=== PATIENT | male | born 1925 | race Caucasian/White ===

== ENCOUNTER 2016-04-29 08:07 | Inpatient (IN) | payer MEDICARE, OTHER ==
--- NOTE | ~2016-04-29 | DS ---
Discharge Summary [facility] [address] [place]. [address] NAME: GRICELDA GIPSON : [birth year] STATUS : DIS IN PAT#: [id number] AGE: 89 ADM/REG DATE : 04/29/16 MR#: [id number] REPORT SERV DATE: 05/08/16 DICTATED BY: ZULMA BARKER III DATE: 05/07/16 REPORT STATUS : Draft TRANSCRIBED BY: CAIO DATE: 05/07/16 Data Collection from hospitalization DISCHARGE DIAGNOSES: 1. 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 2. Malnutrition. 3. Functional paraplegia. 4. Hypertension. 5. Gastroesophageal reflux disease. 6. History of frequent urinary tract infections. 7. Chronic kidney disease stage 3. 8. History of prostate cancer. 9. Diabetes mellitus, dietary controlled. 10.History of depression. CONSULTATIONS: None. PROCEDURES PERFORMED: Wide reexcision of the left-sided chronic fistula tract with coccygectomy and complex closure with flap development and muscle transposition, C and S were also performed from the tract and from the coccyx for better culture analysis, 04/29/2016. PATHOLOGY: Skin, subcutis, and bone; sacrococcygeal area chronic ulcer; and sinus tract extending into underlying bone. MEDICATIONS: Norvasc 5 mg daily, Ecotrin 325 mg daily, Bentyl 10 mg every evening, ferrous sulfate 325 mg daily, Proscar 5 mg every evening, Lasix 40 mg at bedtime, NovoLog insulin level 1 sliding scale before meals and at bedtime, Lopressor 25 mg every evening, Protonix 40 mg at bedtime, Pravachol 20 mg every evening, Requip 0.5 mg every evening, Hytrin 5 mg every evening, Aleve 200 mg twice daily as needed, Benadryl 25 mg every 6 hours as needed, Flonase one spray each nostril twice daily as needed, [place] 5/325 one or two every four hours as needed, MiraLAX powder one packet as needed, PreserVision one twice daily, doxycycline 100 mg twice daily x7 days, [place] 5/325 one or two every six hours as needed. CONDITION AT DISCHARGE: Upon discharge, he did appear to be doing well and had no complaints. DISPOSITION: He was discharged with transfer to [facility] to continue an 1800- calorie ADA diet with activity as discussed. He was to continue with both physical therapy and occupational therapy. He was to [facility] up with [facility] in three weeks. HOSPITAL COURSE: This 89-year-old male was admitted with a long history of chronic wound in his left buttock that began after an excision of a cystic benign mass by his primary care doctor, Dr. Valdo Hunter over a year ago. He had a wide excision of this area that failed to respond to conservative treatment initially, and after the wide excision, the patient continued to fail to heal with cavitary affect and failed to respond to wound VAC therapy as well as numerous other therapeutic modalities to try and close the chronic ulcer with a fistula tract. Workup eventually showed a likely osteomyelitis in the area of the coccyx Discharge [address] [address] NAME: GRICELDA GIPSON : [birth year] STATUS : DIS IN PAT#: [id number] AGE: 89 ADM/REG DATE : 04/29/16 MR#: [id number] REPORT SERV DATE: 05/08/16 DICTATED BY: ZULMA BARKER III DATE: 05/07/16 REPORT STATUS : Draft TRANSCRIBED BY: CAIO DATE: 05/07/16 with a tract that extended to this level and wide excision was recommended to him several weeks prior to this admission; however, he had been unable to have this done due to extreme illness of his , who only a few days prior to this admission. He had an area in the left buttock that had been draining and treated with numerous modalities including antibiotics, wound VAC therapy, and [facility]bridement in [facility]. He was now admitted for surgery and further treatment. Upon admission to the hospital, he had been taken to the operating room where he did undergo the above procedure. He tolerated this well and was transferred to the recovery room. On postop day 1, he did have complaints of leg muscle cramps and was also noted to be thirsty. He was afebrile and his vital signs were stable. He was continued on supportive care. He had been continued on empiric antibiotics with vancomycin pending final culture results. On 05/01/2016, his blood pressure was noted to be up a little. He did state that he had felt better following transfusion. His hemoglobin prior to the transfusion was at 7.9, hematocrit 24.3. Post transfusion, his hemoglobin was up to 10.5, hematocrit 32.7. He had little oral intake recorded and was encouraged to increase his oral intake. His potassium was at 4.2, BUN 37, creatinine 1.38. He had been evaluated by both Physical Therapy and Occupational Therapy and discharge planning was begun. He did continue to do well and was then discharged on 05/02/2016, with the above instructions. Information collected by: Donna Carrillo. I submit the above information as my discharge summary. MARY/CAIO Zulma Barker III, M.D. / [id number] CC: Jazmin Oreilly III, M.D. [facility]
--- NOTE | ~2016-04-29 | OP ---
Record Of Operation [facility] [address] [place]. [address] NAME: GRICELDA GIPSON : [birth year] STATUS : REG [facility] [place] PAT#: [id number] AGE: 89 ADM/REG DATE : 04/29/16 MR#: [id number] REPORT SERV DATE: 04/29/16 DICTATED BY: ZULMA BARKER III DATE: 04/29/16 REPORT STATUS : Draft TRANSCRIBED BY: MODL DATE: 04/29/16 DATE OF PROCEDURE: 04/29/2016 PREOPERATIVE DIAGNOSIS: Chronic ulceration of the left buttock area with extensive track not responding to conservative treatment and MRI evidence of osteomyelitis of the coccyx in a patient with a paraplegia, protein malnutrition, and diabetes historically. POSTOPERATIVE DIAGNOSIS: Chronic ulceration of the left buttock area with extensive track not responding to conservative treatment and MRI evidence of osteomyelitis of the coccyx in a patient with a paraplegia, protein malnutrition, and diabetes historically. Extensive track from the opening left buttocks all the way to the coccyx, which was intimately involved at the base of the track and obviously involved in infectious/inflammatory process. The coccyx was excised and submitted for culture in its entirety and the remnants from rongeured areas along the sacrum were also submitted for the C and S. The soft tissue from the base of the ulcer track were also submitted separately for culture and sensitivity. ANESTHESIA: General with the patient in the prone tita-knife position. The anesthesia was performed with endotracheal tube using a glide scope. DESCRIPTION OF PROCEDURE: The patient was brought to the operating room and positioned and prior to draping and prepping the patient, time-out was held with agreement of allergies, antibiotic plans after cultures were obtained, and surgical plans. After this had been completed with full agreement from the entire staff, the procedure was continued in an ellipsing incision made over the entire length of the track, which was probed with a probing device from the opening all the way to the coccyx, which was approximately 15 cm ellipsing incision. Bovie cautery was used in cutting and coag forms for dissection and hemostasis and wide excision carried out removing all of the fistula tract all the way to the level of the coccyx. The soft tissues were curetted and rongeured, and the coccyx removed and submitted for culture and sensitivity as well as soft tissue from the base of the inflammatory tract. The area was then inspected and incision included all the way down to the rectal muscularis, which was seen, but no incursion developed. The tissues were irrigated with pulse lavage and a large opening prepared for closure. The gluteus muscles were mobilized for transposition, and using an 0 Vicryl sutures, the muscles were pulled down over the defect to help fill the space from the excision. The area of the coccyx excision was similarly covered with fascia from the sacral fascia and approximation performed with interrupted 0 Vicryl sutures [id number] technique. After these had all been placed, they were tied down with good approximation and coverage of the deep tissues. Surgicel was placed in the base prior to complete closure, and tying down of all sutures. Hemostasis was achieved with the cautery and stick ties of Vicryl. The deep tissues were then closed in layers closing the muscle and sacral fascias with interrupted [id number] 0 Vicryl. The subcutaneous tissue was also mobilized for closure creating flaps to get a nice relatively smooth approximation and 0 Vicryl sutures used to approximate subcu tissue. 2-0 Prolene sutures using vertical mattress technique were then used in simple sutures to close the skin. Acticoat postop was applied and no drains were needed. The patient Record Of [address] [place]. [address] NAME: GRICELDA GIPSON : [birth year] STATUS : REG [facility] [place] PAT#: [id number] AGE: 89 ADM/REG DATE : 04/29/16 MR#: [id number] REPORT SERV DATE: 04/29/16 DICTATED BY: ZULMA BARKER III DATE: 04/29/16 REPORT STATUS : Draft TRANSCRIBED BY: MODL DATE: 04/29/16 tolerated the procedure reasonably well, and estimated blood loss was 100 mL. Cultures were pending. The patient was given Levaquin 500 mg during the case after cultures had been obtained as well as vancomycin 1 g. PROCEDURE: Wide re-excision of the left-sided chronic fistula tract with coccygectomy and complex closure with flap development and muscle transposition. C and S was also performed from the track and from the coccyx for better culture analysis. ESTIMATED BLOOD LOSS: 100 mL. RB/CAIO Zulma Barker III, M.D. / [id number] CC: Jazmin Oreilly III, M.D.
--- NOTE | ~2016-04-29 | HP ---
History And Physical [facility] [address] [place]. [address] NAME: GRICELDA GIPSON : [birth year] STATUS : REG [facility] [place] PAT#: [id number] AGE: 89 ADM/REG DATE : 04/29/16 MR#: [id number] REPORT SERV DATE: 04/29/16 DICTATED BY: ZULMA BARKER III DATE: 04/29/16 REPORT STATUS : Draft TRANSCRIBED BY: MODL DATE: 04/29/16 DATE OF ADMISSION: 04/29/2016 HISTORY OF PRESENT ILLNESS: The patient is an 89-year-old white male admitted with a long history of chronic wound in his left buttocks that began after an excision of a cystic benign mass by his primary care doctor, Dr. Valdo Hunter over year ago. The patient has had a wide excision of this area that failed to respond to conservative treatment initially, and after the wide excision the patient continued to fail to heal with cavitary affect and failed to respond to wound VAC therapy as well as numerous other therapeutic modalities to try and close the chronic ulcer with a fistula tract. Workup eventually showed a likely osteomyelitis in the area of the coccyx with a tract that extended to this level and wide excision was recommended to him several weeks ago, but he has been unable to have this done due to extreme illness of his who only a few days ago. The patient has an area in the left buttock that has been draining and treated with numerous modalities including antibiotics, wound VAC therapy, and debridements in [facility]. 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 He has left cataract surgery with intraocular lens and wears glasses, has significant hearing loss with bilateral hearing aids, history of hypertension, cardiac stents 2012 and 2013, chronic edema bilateral lower extremities. 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 Ras Pino. He has had arthritis, joint pain, lumbar spine stenosis, nerve problems in his legs causing falls, osteomyelitis, history of gastroesophageal reflux disease. He has had an appendectomy in the past, a colonoscopy in 2013, frequent urinary tract infections since he self caths four times a day, history of kidney damage secondary to his chronic non-emptying stage 3 chronic kidney disease, and neurogenic bladder. History of prostate cancer followed by Dr. Sandro Newton and Dr. Connor Mayberry. As the history of diabetes mellitus since 1995, had been dietary controlled. He has a history of on depression secondary to his situation. PAST SURGICAL HISTORY: Back surgery in 2006 and 2007, appendectomy, colonoscopy, Achilles heel surgery in the late 80s, multiple debridements of left buttocks beginning on 10/26/2015, cystoscopy with excision of bladder ulcers in 2009. SOCIAL HISTORY: The patient is quit smoking and drinking a long ago. PHYSICAL EXAMINATION: GENERAL: He is an ill-appearing white male, in no acute distress. HEENT: Shows no lateralization. NECK: With osteomyelitis and decreased range of motion. HEART: With a 1/6 systolic ejection murmur and has relatively clear lung petty. ABDOMEN: Soft and nontender. EXTREMITIES: Grossly atrophic in the lower extremities with paraplegia. His arms were relatively normal. His buttocks were unremarkable. He is on a stool program with bowel management program. He has an ulceration in the lateral aspect of the left buttocks approximately 14 cm from the gluteal crease with an extensive 10 to 12 cm tract. Not tender. He has good pulses pedally. History And Physical [address] [address] NAME: GRICELDA GIPSON : [birth year] STATUS : REG [facility] [place] PAT#: [id number] AGE: 89 ADM/REG DATE : 04/29/16 MR#: [id number] REPORT SERV DATE: 04/29/16 DICTATED BY: ZULMA BARKER III DATE: 04/29/16 REPORT STATUS : Draft TRANSCRIBED BY: MODJayla DATE: 04/29/16 NEUROLOGIC: He is alert and oriented, but quite depressed with a very hard of hearing. IMPRESSION: He has a chronic ulcer with likely etiology secondary to osteomyelitis of the coccyx and wide excision, coccygectomy have been recommended to the patient. Risks of surgery were discussed with him including the risk of recurrent ulceration, bleeding, continued infection, injury to the rectum, sepsis, and anesthesia risk, also discussed breakdown of the closure due to his poor nutritional status. AURELIO/CAIO Zulma Barker III, M.D. / [id number] CC: Jazmin Oreilly III, M.D. Nathan Chamberlain, M.D. William Young Jr., M.D.
[~2016-04-29 08:07] MED LIST: ACIPHEX PO; ALEVE220 MG PO; AMOX250 PO; ASAB PO; ASAEC PO; AVANDAMET1 TA4 PO; BEN25 PO; BENTYL10 PO; CIP2 PO; CIP5 PO; CRANBERRY PO; CRANBERRY1 TAB OR; CRANBERRY1 TAB PO; FERROUS SULF325 M1 PO; FLONASE NAS; GLUCCHONDR PO; HALF81 PO; HYT5 PO; HYTRIN10 MG PO; L20 PO; L40 PO; LOP25 PO; MAX25 PO; MIRALAX POWDER1 PKT PO; MIRALAXPKT PO; MULTIPLE VIT PO; MULTIVITAMI1 PO; NORCO1 TA1 PO; NORV5 PO; PRAVAC PO; PRESERVISION A1 EAC1 PO; PRESERVISION AREDS PO; PROSCAR5 PO; PROTONIX PO; REQUIP25 PO; REQUIP5 PO; SAW PALMETT2 PO; SAW PALMETTO; TOPXL25 PO; ZANTAC150 MG PO; [UNRECOGNIZED DRUG - OTHER] PO
[2016-04-29 08:42] LABS: BASOPHILS 0 %; EOSINOPHILS 0.5 %; EOSINOPHILS ABSOLUTE 0.03 10/3/uL (0.0-0.53); HEMATOCRIT 28.8 % (40.0-51.0); HEMOGLOBIN 9.4 g/dL (13.6-17.8); IMMATURE GRANULOCYTES 0.5 %; IMMATURE GRANULOCYTES ABSOLUTE 0.03 10/3/uL (0.0-0.11); LYMPHOCYTES 15.2 %; LYMPHOCYTES ABSOLUTE 0.99 10/3/uL (0.67-4.30); MEAN CORPUS HGB CONC 32.6 g/dL (32.0-36.0); MEAN CORPUSCULAR HEMOGLOB 28.1 pg (26.0-34.0); MEAN PLATELET VOLUME 10.2 fL (9.2-13.0); MONOCYTES 11.2 %; MONOCYTES ABSOLUTE 0.73 10/3/uL (0.21-1.20); NEUTROPHILS 72.6 %; NEUTROPHILS ABSOLUTE 4.73 10/3/uL (2.02-8.40); PLATELET COUNT 240 10/3/uL (150-400); RBC DISTRIBUTION WIDTH 14.4 % (12.0-16.0); RED CELL COUNT 3.35 10/6/uL (4.7-6.1)
[2016-04-29 08:43] LABS: MANUAL DIFF NO %; WHITE BLOOD CELLS 6.5 10/3/uL (4.5-10.5)
[2016-04-29 08:48] LABS: INTERNATIONAL NORMAL RATI 1.3 UNITS (-); PARTIAL THROMBO TIME 37.6 SEC (22.5-37.2)
[2016-04-29 09:00] LABS: CHLORIDE, SERUM 105 MMOL/L (96-112); CREATININE 1.49 MG/DL (0.70-1.30); GFR AFRICAN AMERICAN 48 ML/MIN (>=60); GFR NON AFRICAN AMERICAN 41 ML/MIN (>=60); GLUCOSE, SERUM 89 MG/DL (60-99); POTASSIUM, SERUM 3.9 MMOL/L (3.5-5.3); SGOT(AST) 23 U/L (5-40); SGPT(ALT) 24 U/L (5-65); SODIUM, SERUM 142 MMOL/L (135-148); TOTAL BILIRUBIN 0.7 MG/DL (0-1.2); TOTAL PROTEIN 7.6 G/DL (6.0-8.5)
[2016-04-29 09:01] LABS: A/G RATIO 0.4 (0.7-1.9); ALBUMIN 2.3 G/DL (3.5-5.0); ALKALINE PHOSPHATASE 136 U/L (45-117); BUN (BLOOD UREA NITROGEN) 57 MG/DL (6-23); CO2 (CARBON DIOXIDE) 26 MMOL/L (24-34); GLOBULIN 5.3 G/DL (2.5-4.1)
[2016-04-29 14:34] LABS: ASCORBIC ACID (UR NOT ORDER) NEG (NEG); BILIRUBIN, URINE NEGATIVE (NEG); KETONE, URINE NEGATIVE (NEG); LEUKOCYTE ESTERASE(NOT OR LARGE (NEG); WBC (NOT ORDERED) (RFLEX) 77 (0-5)
[2016-04-30 07:09] LABS: BASOPHILS 0.2 %; BASOPHILS ABSOLUTE 0.01 10/3/uL (0.0-0.16); EOSINOPHILS 0.8 %; EOSINOPHILS ABSOLUTE 0.05 10/3/uL (0.0-0.53); HEMOGLOBIN 7.9 g/dL (13.6-17.8); IMMATURE GRANULOCYTES 0.2 %; IMMATURE GRANULOCYTES ABSOLUTE 0.01 10/3/uL (0.0-0.11); LYMPHOCYTES 9.4 %; MEAN CORPUS HGB CONC 32.5 g/dL (32.0-36.0); MEAN CORPUSCULAR HEMOGLOB 27.9 pg (26.0-34.0); MEAN CORPUSCULAR VOLUME 85.9 fL (80-100); MEAN PLATELET VOLUME 10.4 fL (9.2-13.0); MONOCYTES 8.9 %; MONOCYTES ABSOLUTE 0.57 10/3/uL (0.21-1.20); NEUTROPHILS 80.5 %; NEUTROPHILS ABSOLUTE 5.14 10/3/uL (2.02-8.40); PLATELET COUNT 210 10/3/uL (150-400); RBC DISTRIBUTION WIDTH 14.8 % (12.0-16.0); RED CELL COUNT 2.83 10/6/uL (4.7-6.1); WHITE BLOOD CELLS 6.4 10/3/uL (4.5-10.5)
[2016-04-30 07:11] LABS: HEMATOCRIT 24.3 % (40.0-51.0); MANUAL DIFF NO %
[2016-04-30 07:22] LABS: BUN (BLOOD UREA NITROGEN) 45 MG/DL (6-23); CALCIUM, SERUM 8.3 MG/DL (8.5-10.4); CHLORIDE, SERUM 105 MMOL/L (96-112); CO2 (CARBON DIOXIDE) 24 MMOL/L (24-34); CREATININE 1.36 MG/DL (0.70-1.30); GFR AFRICAN AMERICAN 53 ML/MIN (>=60); GFR NON AFRICAN AMERICAN 46 ML/MIN (>=60); GLUCOSE, SERUM 99 MG/DL (60-99); POTASSIUM, SERUM 4.5 MMOL/L (3.5-5.3); SODIUM, SERUM 139 MMOL/L (135-148)
[2016-05-01 09:21] LABS: BASOPHILS 0.1 %; BASOPHILS ABSOLUTE 0.01 10/3/uL (0.0-0.16); EOSINOPHILS 1.4 %; EOSINOPHILS ABSOLUTE 0.11 10/3/uL (0.0-0.53); IMMATURE GRANULOCYTES 0.3 %; IMMATURE GRANULOCYTES ABSOLUTE 0.02 10/3/uL (0.0-0.11); LYMPHOCYTES 10.3 %; LYMPHOCYTES ABSOLUTE 0.79 10/3/uL (0.67-4.30); MEAN CORPUS HGB CONC 32.1 g/dL (32.0-36.0); MEAN CORPUSCULAR HEMOGLOB 28.1 pg (26.0-34.0); MEAN CORPUSCULAR VOLUME 87.4 fL (80-100); MEAN PLATELET VOLUME 10.2 fL (9.2-13.0); MONOCYTES 8.4 %; MONOCYTES ABSOLUTE 0.65 10/3/uL (0.21-1.20); NEUTROPHILS 79.5 %; NEUTROPHILS ABSOLUTE 6.12 10/3/uL (2.02-8.40); PLATELET COUNT 215 10/3/uL (150-400); RBC DISTRIBUTION WIDTH 14.1 % (12.0-16.0); WHITE BLOOD CELLS 7.7 10/3/uL (4.5-10.5)
[2016-05-01 09:22] LABS: HEMATOCRIT 32.7 % (40.0-51.0); HEMOGLOBIN 10.5 g/dL (13.6-17.8); MANUAL DIFF NO %; RED CELL COUNT 3.74 10/6/uL (4.7-6.1)
[2016-05-01 09:35] LABS: CALCIUM, SERUM 8.5 MG/DL (8.5-10.4); CHLORIDE, SERUM 102 MMOL/L (96-112); CO2 (CARBON DIOXIDE) 24 MMOL/L (24-34); CREATININE 1.38 MG/DL (0.70-1.30); GFR AFRICAN AMERICAN 53 ML/MIN (>=60); GFR NON AFRICAN AMERICAN 45 ML/MIN (>=60); POTASSIUM, SERUM 4.2 MMOL/L (3.5-5.3); SODIUM, SERUM 136 MMOL/L (135-148)
[2016-05-01 09:37] LABS: BUN (BLOOD UREA NITROGEN) 37 MG/DL (6-23); GLUCOSE, SERUM 122 MG/DL (60-99)
[2016-05-02 04:16] LABS: BASOPHILS 0 %; EOSINOPHILS 1.3 %; EOSINOPHILS ABSOLUTE 0.11 10/3/uL (0.0-0.53); HEMATOCRIT 31.9 % (40.0-51.0); HEMOGLOBIN 10.4 g/dL (13.6-17.8); IMMATURE GRANULOCYTES 0.4 %; IMMATURE GRANULOCYTES ABSOLUTE 0.03 10/3/uL (0.0-0.11); LYMPHOCYTES 12.4 %; LYMPHOCYTES ABSOLUTE 1.04 10/3/uL (0.67-4.30); MEAN CORPUS HGB CONC 32.6 g/dL (32.0-36.0); MEAN CORPUSCULAR HEMOGLOB 28.4 pg (26.0-34.0); MEAN CORPUSCULAR VOLUME 87.2 fL (80-100); MEAN PLATELET VOLUME 10.3 fL (9.2-13.0); MONOCYTES 11.3 %; MONOCYTES ABSOLUTE 0.95 10/3/uL (0.21-1.20); NEUTROPHILS 74.6 %; NEUTROPHILS ABSOLUTE 6.29 10/3/uL (2.02-8.40); PLATELET COUNT 219 10/3/uL (150-400); RBC DISTRIBUTION WIDTH 14.1 % (12.0-16.0); RED CELL COUNT 3.66 10/6/uL (4.7-6.1); WHITE BLOOD CELLS 8.4 10/3/uL (4.5-10.5)
[2016-05-02 04:17] LABS: MANUAL DIFF NO %
[2016-05-02 04:31] LABS: CALCIUM, SERUM 8.4 MG/DL (8.5-10.4); CHLORIDE, SERUM 102 MMOL/L (96-112); CO2 (CARBON DIOXIDE) 28 MMOL/L (24-34); CREATININE 1.36 MG/DL (0.70-1.30); GFR AFRICAN AMERICAN 53 ML/MIN (>=60); GFR NON AFRICAN AMERICAN 46 ML/MIN (>=60); GLUCOSE, SERUM 106 MG/DL (60-99); POTASSIUM, SERUM 4.1 MMOL/L (3.5-5.3); SODIUM, SERUM 139 MMOL/L (135-148)
[2016-05-02 04:34] LABS: BUN (BLOOD UREA NITROGEN) 42 MG/DL (6-23)
== END 2016-05-02 14:50 | DRG 628 ==
LOC: SDC 08:07 → 5SO 17:44
PROVIDERS: Surgery
PROC: 0QBS0ZZ Excision of Coccyx, Open Approach (ICD-10-PCS; 2016-04-29 09:45)
PROC: 30233N1 Transfusion of Nonautologous Red Blood Cells into Peripheral Vein, Percutaneous Approach (ICD-10-PCS; principal; 2016-04-30)
DX: E11.69 Type 2 diabetes mellitus with other specified complication (principal); E43 Unspecified severe protein-calorie malnutrition; M86.18 Other acute osteomyelitis, other site; G82.20 Paraplegia, unspecified; M86.68 Other chronic osteomyelitis, other site; N39.0 Urinary tract infection, site not specified; E11.9 Type 2 diabetes mellitus without complications; D64.89 Other specified anemias; T83.518A Infection and inflammatory reaction due to other urinary catheter, initial encounter; E46 Unspecified protein-calorie malnutrition; Z98.890 Other specified postprocedural states; Z90.49 Acquired absence of other specified parts of digestive tract; Z87.891 Personal history of nicotine dependence; Z88.0 Allergy status to penicillin; Z88.5 Allergy status to narcotic agent; Z88.6 Allergy status to analgesic agent; Z79.82 Long term (current) use of aspirin; Z79.899 Other long term (current) drug therapy; F32.9 Major depressive disorder, single episode, unspecified
CPT/HCPCS: 36415; 71010; 80048; 80053; 81001; 82962; 83880; 84134; 85025; 85610; 85730; 86850; 86900; 86901; 86920; 87070; 87075; 87077; 87086; 87186; 87205; 88304; 88311; 93005; 97162-GP; 97166-GO; A9270-GY; G8978-CM-GP; G8979-CL-GP; G8987-CK-GO; G8988-CJ-GO; J1170; J1956; J2370; J2405; J2710; J3010; J3370; P9016

== ENCOUNTER 2016-06-05 18:30 | Inpatient (IN) | payer MEDICARE, OTHER ==
--- NOTE | ~2016-06-05 | CN ---
Consultation Report [facility] [address] [place]. [address] NAME: GRICELDA GIPSON : [birth year] STATUS : ADM IN PAT#: [id number] AGE: 89 ADM/REG DATE : 06/05/16 MR#: [id number] REPORT SERV DATE: 06/14/16 DICTATED BY: ANITA CROWLEY DATE: 06/14/16 REPORT STATUS : Draft TRANSCRIBED BY: MODL DATE: 06/14/16 INFECTIOUS DISEASE CONSULTATION DATE OF CONSULTATION: 06/14/2016 REASON FOR CONSULTATION: MRSA sacral abscess and osteomyelitis. HISTORY OF PRESENT ILLNESS: This is an 89-year-old man with a past medical history notable for spinal stenosis with functional paraplegia and the development of chronic sacral wound. He has been followed by Dr. Barker for this and most recently on 04/29/2016 underwent surgery with excision of the coccyx and debridement with findings of an extensive tract all the way to the coccyx. Cultures from this procedure grew very sparse MRSA. The patient was discharged back to a life care facility with a week more of doxycycline. He was readmitted to the hospital on 06/05/2016 because of worsening condition of his wound along with some mental status changes. The patient underwent a radiographic workup which included an MRI, that has actually been done on 06/04/2016 of the pelvis area and this showed a 3.5 x 2.5 x 2.4 cm gas fluid level within the collection suspicious for an abscess, immediately below the tip of the sacrum with potential bone erosion in the tip of the sacrum. On 06/06/2016, a CT scan was done of the pelvis without IV contrast and was interpreted as showing a fistula extending from the distal sigmoid colon into the superficial soft tissues to the left of the midline at the inferior margin of the sacrum and coccyx. A CT-guided drain was placed with about 10 mL of material removed on 06/06/2016, which showed sparse MRSA on culture. A water-soluble contrast enema was done on 06/10/2016, which showed diverticulosis but no evidence of a fistula or sinus tract. The patient had a followup abscessogram done yesterday, which showed filling of the ulcer cavity, but no evidence of any communication elsewhere. The drainage catheter was removed. The patient has a wound VAC. Plans are made to continue him on vancomycin at least three more weeks. I note that he was started on vancomycin and cefepime on admission, and the cefepime was stopped two days ago. The patient himself has had confusion and was evaluated by a Psychiatry and felt to have a toxic metabolic delirium. Right now, he is calm. He tells me that he "hurts all over." PAST MEDICAL HISTORY: In addition to the above is notable for diabetes, chronic kidney disease, coronary artery disease, neurogenic bladder, for which he now has a chronic Preciado, BPH, prostate cancer, lumbar spine surgery, appendectomy, and TURP. ALLERGIES: PENICILLIN CAUSED RASH. THE PATIENT ALSO HAS SULFA LISTED AN ALLERGY ALONG WITH MORPHINE, ASPIRIN, AND KEFLEX. PRESENT MEDICATIONS: In addition to vancomycin include Bentyl, Colace, Lexapro, Duragesic patch, iron, Proscar, subcutaneous heparin insulin, melatonin, Lopressor, multivitamins, Protonix, MiraLAX, Pravachol, Requip, Hytrin. SOCIAL HISTORY: Distant smoking history. Nondrinker. Lost his earlier this year. 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 Consultation Report [address] [place]. [address] NAME: GRICELDA GIPSON : [birth year] STATUS : ADM IN [facility]#: [id number] AGE: 89 ADM/REG DATE : 06/05/16 MR#: [id number] REPORT SERV DATE: 06/14/16 DICTATED BY: ANITA CROWLEY DATE: 06/14/16 REPORT STATUS : Draft TRANSCRIBED BY: CAIO DATE: 06/14/16 FAMILY HISTORY: Noncontributory. REVIEW OF SYSTEMS: He denies diarrhea. PHYSICAL EXAMINATION: VITAL SIGNS: The patient weighs 86 kg. He is afebrile. Blood pressure 115/56, pulse 86, respiratory rate 14. GENERAL: He is a fairly alert, in no acute distress. HEAD AND NECK: Unremarkable. Clear oral cavity. LUNGS: Clear to auscultation anteriorly and laterally. CARDIAC: Regular rate and rhythm. Normal S1, S2 without murmur, gallop, or rub. ABDOMEN: Shows hyperactive bowel sounds, nondistended, soft, nontender. No masses appreciated. EXTREMITIES: Show peripheral IV in the right forearm without evidence of phlebitis. No significant edema. SKIN: Without rash. LABORATORY STUDIES: White blood cell count 8.3, hemoglobin 9.6, platelets 243. Creatinine 1.10. On admission, albumin was 1.9, pre-albumin 11.1, alkaline phosphatase 150, procalcitonin 0.12. Admission blood cultures negative. Urine culture grew Cris lusitaniae and urine from the Preciado had marked pyuria. He did receive six days of fluconazole. Other cultures and radiologic studies as mentioned above. IMPRESSION: MRSA sacral osteomyelitis and abscess. Rather, in a debilitated malnourished patient with paraplegia and a chronic wound for which he had excision of infected coccyx over about six weeks ago. It is entirely unclear to me how much residual osteomyelitis he has at this point. Obviously, his overall prognosis with all his problems is poor. PLAN: 1. We will continue the vancomycin at least three more weeks. We will discuss further with Dr. Barker regarding whether or not we should pursue a more prolonged course of IV antibiotics and/or chronic oral suppressive antibiotic therapy. 2. We will order a PICC line. JUD/CAIO Anita Crowley M.D. / [id number] Consultation Report [address] [address] NAME: GRICELDA IGPSON : [birth year] STATUS : ADM IN [facility]#: [id number] AGE: 89 ADM/REG DATE : 06/05/16 MR#: [id number] REPORT SERV DATE: 06/14/16 DICTATED BY: ANITA CROWLEY DATE: 06/14/16 REPORT STATUS : Draft TRANSCRIBED BY: CAIO DATE: 06/14/16 CC: Victoriano Jensen MD
--- NOTE | ~2016-06-05 | DS ---
Discharge Summary [id number] [facility] [place]. [address] NAME: GRICELDA GIPSON : [birth year] STATUS : DIS IN PAT#: [id number] AGE: 89 ADM/REG DATE : 06/05/16 MR#: [id number] REPORT SERV DATE: 06/15/16 DICTATED BY: DATE: REPORT STATUS : Draft TRANSCRIBED BY: MODL DATE: 06/14/16 ADMISSION DATE: 06/05/2016 DISCHARGE DATE: 06/14/2016 DISCHARGE DIAGNOSES: 1. Sacral osteomyelitis. 2. Sacral wound abscess. 3. Encephalopathy. 4. Diabetes mellitus type 2. 5. Debility. 6. Depression. 7. Failure to thrive. 8. Hypertension. CONSULTING PHYSICIANS: Include Dr. Herberth Barker, Dr. Jeffrey Maguire, Dr. Rafa Crowley. DISCHARGE MEDICATIONS: Cadexomer iodine gel 1.4 ounces apply with sacral dressing changes topical daily; Bentyl 10 mg p.o. at bedtime; Colace 100 mg p.o. b.i.d.; Lexapro 10 mg p.o. daily; fentanyl 50 mcg an hour patch q.72 hours; ferrous sulfate 325 mg p.o. daily; Proscar 5 mg p.o. at bedtime; melatonin 6 mg p.o. at bedtime; Theragran one tablet p.o. daily; Lopressor 25 mg p.o. b.i.d.; Protonix 40 mg p.o. before breakfast; MiraLax powder one packet p.o. daily; Pravachol 20 mg p.o. at bedtime; Requip 0.5 mg p.o. at bedtime; Hytrin 5 mg p.o. at bedtime; vancomycin 1500 mg IV q.36 hours until 07/18/2016; lispro sliding scale; Percocet 5/325 mg tablet one to two tabs p.o. q.4 hours p.r.n. for pain; aspirin 325 mg p.o. daily. HISTORY OF PRESENT ILLNESS: For full H and P, please refer to Dr. Tobi Salazar's dictation on 06/05/2016. Please also see Dr. Jeffrey Maguire's consultation report on 06/09/[address] Yamilex Kingsley's interim discharge summary on 06/10/2016. HOSPITAL COURSE/PROBLEM LIST: 1. Sacral osteomyelitis and sacral wound abscess. Dr. Herberth Barker with Surgery has been following along with the patient. He currently has a wound VAC. His wound was cultured and is growing MRSA. He has been on IV vancomycin since admission. He did have MRSA bacteremia in March of this year. Consulted Infectious Disease, Dr. Rafa Crowley, who saw the patient today. His recommendation is six weeks of IV vancomycin post discharge, so we will place a PICC line as well as continue his IV vancomycin. He will follow up with Dr. Rafa Crowley as an outpatient. He will be managing vancomycin levels and dosage adjustments. 2. Encephalopathy. The patient has a transient confusion. Today, he is alert and oriented x1 and is able to follow commands. However, for the past several days, he has not been able to answer question and has been speaking "gibberish." Hopefully, this will improve as the patient continues to get treatment for his infection. 3. Diabetes mellitus type 2. The patient's blood sugar has been within normal limits. He has required no insulin. His blood sugars have been 80s to one-teens. I will continue his lispro sliding scale if needed. Discharge Summary [address] [place]. [address] NAME: GRICELDA GIPSON : [birth year] STATUS : DIS IN PAT#: [id number] AGE: 89 ADM/REG DATE : 06/05/16 MR#: [id number] REPORT SERV DATE: 06/15/16 DICTATED BY: DATE: REPORT STATUS : Draft TRANSCRIBED BY: MODL DATE: 06/14/16 4. Debility. The patient was apparently walking several months ago according to Dr. Barker, who has known the patient for several years. He has declined rapidly over the last several months. The patient lives at the [facility]. We will continue physical therapy after discharge. 5. Depression. The patient lost his several weeks ago. Dr. Maguire of Psychiatry was consulted. However, we did not get any new recommendations. I will continue the patient's Lexapro after discharge. 6. Hypertension. The patient's blood pressure is controlled, ranging from the one-teens to the 160s. 7. Failure to thrive. I encouraged the patient to eat as well as consider nutritional supplements once the patient returns to the [facility]. He was prescribed Marinol prior to admission; however, this was not continued due to his mental status changes and encephalopathy considering he still has these problems currently and I will not prescribe Marinol. However, if his condition improves after discharge, then Marinol might be an option. Currently, the patient is hemodynamically stable. The patient's blood pressure is 142/86, heart rate 94, respirations 14, O2 sat 95% on room air, temperature 98.7. Labs are unremarkable. The patient has been afebrile. CLR/MODL Zak Rincon NP / [id number] CC: Victoriano Jensen MD
--- NOTE | ~2016-06-05 | IDS ---
Interim Discharge Summary [facility] [address] [place]. [address] NAME: GRICELDA GIPSON : [birth year] STATUS : ADM IN [facility]#: [id number] AGE: 89 ADM/REG DATE : 06/05/16 MR#: [id number] REPORT SERV DATE: 06/10/16 DICTATED BY: CHRISTI MCKEON DATE: 06/10/16 REPORT STATUS : Draft TRANSCRIBED BY: MODJayla DATE: 06/10/16 ADMISSION DATE: 06/05/2016 DISCHARGE DATE: DIAGNOSES: 1. Sacral osteomyelitis. 2. 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 3. Encephalopathy. 4. Catheter-associated urinary tract infection. 5. Type 2 diabetes. 6. Debility. 7. Depression. 8. Failure to thrive. 9. Hypertension. CONSULTANTS: General Surgery, Dr. Herberth Barker. HOSPITAL COURSE: Please see H and P dictated by Dr. Salazar. An 89-year-old male with a past medical history of sacral osteomyelitis with a recent surgery by Dr. Herberth Barker in 04/2016 for osteomyelitis. The patient was discharged to long-term facility, however, returned for a worsening sacral decubitus ulcer and abscess formation with increased pain. The patient has become more debilitated. He used to ambulate with a walker and now has become bedbound due to worsening pain. Please refer H and P for further details. The patient was admitted to the Hospitalist Service and consulted to Dr. Barker who is well familiar with the patient. He continues on IV antibiotics with vancomycin and cefepime. Interventional Radiology was consulted for a drain catheter placement by Dr. Barker to the wound site also. The patient had a CT of the pelvis with findings consistent with fistula extending from the distal sigmoid to soft tissues at the sacrum and coccyx. This was reviewed with Dr. Barker with the radiologist, therefore, Dr. Barker ordered a Gastrografin study for further investigation of the fistula, however, the Gastrografin study did not reveal any signs of fistula or sinus tract, therefore, will follow further recommendations from Dr. Barker who is doing the primary wound care treatment for Mr. Gipson. Also during this hospital course, the patient was suffering from depression. He recently lost his a couple of months ago and also suffering from some intermittent [facility] due to the patient's failure to thrive and poor oral intake. A new prescription for Marinol was initiated, however, the patient was recently started on the Marinol, however, Marinol will be discontinued today due to a possible exacerbating encephalopathy. However, in the future, may consider Megace just as long as the patient is on DVT prophylaxis. The patient continues on heparin t.i.d. for DVT prophylaxis at this time. Also, we will initiate melatonin at nighttime to ensure the patient is sleeping well at night for better alertness in the morning. His encephalopathy has improved today. He has good eye contact and answers questions appropriately currently at this time. He was seen by Dr. Jeffrey Maguire today as well with no further recommendations. The vital signs remained stable. He is on a Clinitron bed. Also, he continues to have pain management for his uncontrolled pain at wound site. The patient Interim Discharge Summary [address] [place]. [address] NAME: GRICELDA GIPSON : [birth year] STATUS : ADM IN [facility]#: [id number] AGE: 89 ADM/REG DATE : 06/05/16 MR#: [id number] REPORT SERV DATE: 06/10/16 DICTATED BY: CHRISTI MCKEON DATE: 06/10/16 REPORT STATUS : Draft TRANSCRIBED BY: CAIO DATE: 06/10/16 continued to be followed by Dr. Herberth Barker. The patient will be taken care of by Dr. Jensen starting 06/11/2014 who will attend to Mr. Gipson's care. [facility] Christi Mckeon M.D. / [id number] CC: Christi Mckeon M.D. UNKNOWN
--- NOTE | ~2016-06-05 | HP ---
History And Physical [id number] [facility] [place]. [address] NAME: GRICELDA GIPSON : [birth year] STATUS : ADM IN PAT#: [id number] AGE: 89 ADM/REG DATE : 06/05/16 MR#: [id number] REPORT SERV DATE: 06/06/16 DICTATED BY: EJ VAZQUEZ DATE: 06/05/16 REPORT STATUS : Draft TRANSCRIBED BY: MODL DATE: 06/05/16 DATE OF ADMISSION: 06/05/2016 CHIEF COMPLAINT: An 89-year-old male presenting with increasing sacral decubitus ulcer and abscess formation now as well as Preciado catheter-induced urinary tract infection. HISTORY OF PRESENTING ILLNESS: The patient's history was obtained through careful interview with the patient coupled with review of [facility] and [facility] medical records. The patient has been dealing with sacral decubitus ulcer for about a year or more. Over that period of time, he has had increasing debilitation. He used to ambulate with a walker, but now has become increasingly wheelchair bound and even bedbound. Recently, he has been attempting rehabilitation at [facility]. He has lost about 25 pounds in this last year. For the last two months, his sacrum has been increasingly painful with a poorly healing ulcer. Now, he describes over the last few days, sacral discomfort. "It hurts like the devil," sharp, aching, throbbing, 10/10 severity. He used to self-catheterize for neurogenic bladder, but recently during rehab, he has had a chronic permanent Preciado catheter in place. It does not cause any pain. He denies any abdominal pain. He has nausea, but no vomiting. He has a very poor appetite. No shortness of breath. No cough. No chest pain. No fevers or chills. He has had some slight confusion recently. No lightheadedness. REVIEW OF SYSTEMS: Otherwise, a 14-point review of systems was obtained and was negative. PAST MEDICAL HISTORY: 1. Diabetes. Hemoglobin A1c of 6.3, 03/2016. 2. Chronic kidney disease stage 3. Baseline creatinine of 1.3 to 1.6. 3. 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 4. Coronary artery disease with history of stent placement. 5. Neurogenic bladder. Previously had self catheterized, but now has a chronic indwelling Preciado catheter. 6. 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 Newton. 7. Pseudomonas infections. 8. 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 9. Neuropathy. 10.Osteomyelitis, decubitus ulcers. 11.Benign prostatic hypertrophy. 12.Prostate cancer. Considered under observation. History And Physical [address] [address] NAME: GRICELDA GIPSON : [birth year] STATUS : ADM IN [facility]#: [id number] AGE: 89 ADM/REG DATE : 06/05/16 MR#: [id number] REPORT SERV DATE: 06/06/16 DICTATED BY: EJ VAZQUEZ DATE: 06/05/16 REPORT STATUS : Draft TRANSCRIBED BY: CAIO DATE: 06/05/16 13.Depression. 14.Restless leg syndrome. PAST SURGICAL HISTORY: 1. Lumbar spine surgery in 2006 and 2007. 2. Appendectomy. 3. Left Achilles. 4. Debridements. 5. Skin cancer removals. 6. TURP. ALLERGIES: PENICILLIN, MORPHINE, AND ASPIRIN. SOCIAL HISTORY: Quit smoking more than 30 years ago. No alcohol abuse. Is a . Has three children. Retired from working for the railroad and in a post office. FAMILY HISTORY: Father at 39 years of age as a stone chimney mason. Mother of complications of rheumatic fever at an advanced age. Three brothers who have all undergone CABG. Two siblings with stroke. A strong family history of cancer and Alzheimer's dementia as well. CURRENT MEDICATIONS: Include Norvasc 5 mg daily p.o. daily, aspirin 325 mg p.o. daily, Bentyl 10 mg p.o. q.h.s., Colace 100 mg p.o. b.i.d., Marinol 2.5 mg p.o. b.i.d., Lexapro 10 mg p.o. daily, Duragesic patch, iron 325 mg p.o. daily, Proscar 5 mg p.o. daily, Diflucan 100 mg p.o. daily, Lasix 40 mg p.o. daily, Lopressor 25 mg p.o. at nighttime, multivitamin, Zofran, Percocet 10s p.r.n., Protonix 40 mg p.o. daily, MiraLAX packet daily, Pravachol 20 mg p.o. daily, Phenergan p.r.n., Requip 0.5 mg p.o. q.h.s., Hytrin 5 mg p.o. q.h.s., Ambien 5 mg at bedtime. PHYSICAL EXAMINATION: VITAL SIGNS: Temperature 97.6, pulse 74, blood pressure 154/74, respiratory rate 18, and O2 saturation 96% on room air. GENERAL: A chronically ill-appearing male, in evidence of distress secondary to his described sacral decubitus pain. HEENT: Pupils equal, round, and reactive to light. No conjunctival pallor. No scleral icterus. Nares are patent. Oropharynx is clear of obstruction. Dry mucous membranes. NECK: Trachea midline. No thyromegaly. LYMPH: No cervical lymphadenopathy. No supraclavicular lymphadenopathy. No inguinal lymphadenopathy. RESPIRATORY: Clear to auscultation at bases. No wheezes, rales, or rhonchi. Normal respiratory effort. CARDIOVASCULAR: Regular rate and rhythm. No murmurs, rubs, or gallops. No current extremity edema is appreciated. ABDOMEN: Soft, nontender, and nondistended. Normal bowel sounds auscultated throughout. No hepatosplenomegaly. DERMATOLOGICAL: Warm and dry extremities. No pallor, no cyanosis. The patient has just had his sacrum redressed in the emergency department, so elected not to undo this bandaging for History And Physical [address] [address] NAME: GRICELDA GIPSON : [birth year] STATUS : ADM IN [facility]#: [id number] AGE: 89 ADM/REG DATE : 06/05/16 MR#: [id number] REPORT SERV DATE: 06/06/16 DICTATED BY: EJ VAZQUEZ DATE: 06/05/16 REPORT STATUS : Draft TRANSCRIBED BY: MODL DATE: 06/05/16 evaluation personally of the sacral wound. PSYCHIATRIC: A flat affect. Discouraged mood. Alert and oriented x3. LABORATORY DATA: White blood cell count 8.6, hemoglobin 11, hematocrit 33, platelets 275. Sodium 140, potassium 4.1, chloride 103, bicarb 26, BUN 46, creatinine 1.38, glucose 87, albumin 2.1, lactic acid 1.2, alkaline phosphatase 150. Urinalysis shows greater than 182 white blood cells, large leukocyte esterase. STUDIES: 1. EKG by my own evaluation shows sinus rhythm. No major abnormalities. 2. An MRI of the sacral area shows a 3.5 x 2.5 x 2.4 gas-filled abscess underlying the sacrum (obtained on 06/04/2016). ASSESSMENT AND PLAN: 1. Sacral abscess. Consult Dr. Barker, surgeon, who was contacted from the emergency department and is aware of the case. Place on IV vancomycin because of history of methicillin-resistant Staphylococcus aureus. 2. Preciado catheter-associated urinary tract infection. Check urine culture. Place on IV cefepime secondary to history of Pseudomonas. 3. 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 4. Chronic kidney disease stage 3. 5. A 25-pound weight loss. Check prealbumin. 6. Diabetes. Recent hemoglobin A1c is 6.3, 03/2016. Place on sliding scale insulin. KPL/MODL Ej Vazquez M.D. / [id number] CC: Jazmin Holm III, M.D. Luther Frank Chandler, M.D.
--- NOTE | ~2016-06-05 | CN ---
Consultation Report [facility] [address] [place]. [address] NAME: GRICELDA GIPSON : [birth year] STATUS : ADM IN PAT#: [id number] AGE: 89 ADM/REG DATE : 06/05/16 MR#: [id number] REPORT SERV DATE: 06/10/16 DICTATED BY: DATE: REPORT STATUS : Draft TRANSCRIBED BY: MODL DATE: 06/07/16 CONSULTATION NOTE DATE OF CONSULTATION: HISTORY OF PRESENT ILLNESS: An 89-year-old white male, known to me from wound healing six mile run with previous surgical interventions as well as protracted wound management of a left sacral abscess and history of an osteomyelitis requiring a coccygectomy. The patient is admitted this time with worsening of the abscess with a urinary tract infection. He is functionally paraplegic secondary to spinal stenosis. The patient's emergency room admission for transfer from [facility] secondary to worsening of his sacral breakdown with change in his mental status. He has had a coccygectomy on 04/29/2016 with debridement of surrounding infected tissue and primary closure. His culture and sensitivity had grown an MRSA on 04/29/2016. The patient has been extremely depressed secondary to loss of his a few weeks ago and worsening of his spinal stenosis, initiated functional paraplegia. The patient has been in a nursing facility awaiting transfer to the [facility] where his family presently lives. The patient now has an opening at mid sacral region that is 3 x 3.5 with a 5 cm depth and undermining circumferentially of at least 8 cm with palpable bone of the sacrum through the opening. CAT scan has been done and shows a pocket as well as a probable fistula tract between the rectum and the pocket. The patient is nutritionally very depleted. PAST MEDICAL HISTORY: He has functional paraplegia secondary to spinal stenosis. He has a left cataract surgery with intra-ocular lenses, but still wears glasses. He has had significant hearing loss, with hearing aids; history of hypertension; cardiac stents in 2012 and ; chronic edema, bilateral lower extremities. He has had a lot of neuropathy and weakness in lower extremities with the recent history of osteomyelitis of the coccyx. PAST SURGICAL HISTORY: Includes prostate biopsy; back surgery in 2006 and 2007; appendectomy; colonoscopy, last 03/01/2013; Achilles heel surgery late in the ; multiple debridements of the left buttocks ulcer, around 10/26/2015. He has had excision of bladder ulcers and cystoscopy back in 09/2009. The [facility]. He uses a wheelchair and not ambulatory. PHYSICAL EXAMINATION: GENERAL: He is a very depressed white male. No acute distress. HEENT: Exam showed no lateralization. NECK: Supple with osteoarthritic decrease in range of motion. CHEST: Showed decreased inspiratory effort, but no rhonchi or rales. ABDOMEN: Soft with diffuse mild tenderness throughout. No rebound. Bowel sounds were normal. Consultation Report [facility] [address] [place]. [address] NAME: GRICELDA GIPSON : [birth year] STATUS : ADM IN PAT#: [id number] AGE: 89 ADM/REG DATE : 06/05/16 MR#: [id number] REPORT SERV DATE: 06/10/16 DICTATED BY: DATE: REPORT STATUS : Draft TRANSCRIBED BY: CAIO DATE: 06/07/16 EXTREMITIES: Grossly atrophic. The patient has the area on his buttocks and sacral region that, as described is a 3 x 3.5 opening and 5 cm depth with undermining of 8 cm circumferentially down to a palpable sacral bony tissue. His CAT scan done yesterday and reviewed with Dr. Johnson today, shows an abscess cavity with probable fistula tract communicating with the rectum. I have discussed with the patient the need for CAT scan-guided drainage and local care, and the possibility of diverting colostomy if this fistula proves to be a high-output situation is highly likely. The patient's white count today is 6.6 with no shift, hemoglobin and hematocrit 9.3 and 29.3, platelets of 227,000. His BUN and creatinine show BUN elevated at 36 and creatinine at 1.17. IMPRESSION: The patient has a sacral abscess and ulceration that is consistent with a stage IV decubitus, complicated by previous surgical resection of the coccyx secondary to osteomyelitis and stage IV decubitus changes. He also has urinary tract infection. Previously, noted to have Pseudomonas sensitive to cefepime and a history of spinal stenosis resulting in functional paraplegia. Chronic kidney disease, stage 3. Significant 25-pound weight loss in the last few months. Diabetes mellitus, presently not active due the patient's catabolic state. I have reviewed and discussed the findings with Dr. Johnson who will do the drainage and discussed with Dr. Kingsley as well as the patient, the plans. DICTATED BY: Jazmin Oreilly III/[facility] / [id number] CC: Yamilex Kingsley M.D.
--- NOTE | ~2016-06-05 | CN ---
Consultation Report [facility] [address] [place]. [address] NAME: GRICELDA GIPSON : [birth year] STATUS : ADM IN PAT#: [id number] AGE: 89 ADM/REG DATE : 06/05/16 MR#: [id number] REPORT SERV DATE: 06/10/16 DICTATED BY: JEFFREY CHAUDHARI DATE: 06/10/16 REPORT STATUS : Draft TRANSCRIBED BY: MODL DATE: 06/10/16 PSYCHIATRIC CONSULTATION DATE OF CONSULTATION: 06/10/2016 I reviewed this patient's current and old medical records. I discussed his status with his nurse. HISTORY OF PRESENT ILLNESS: He was admitted with a sacral abscess/osteomyelitis. I was consulted to address depression. Yesterday, he was very confused. PAST PSYCHIATRIC HISTORY: His home medication list included Lexapro 10 mg daily, fentanyl patch 50 mcg/hour, oxycodone 10/325 q.6 hours p.r.n., Requip 0.5 mg at q.h.s., and Ambien 5 mg q.h.s. p.r.n. As far as I can determine, there is no preexisting psychiatric illness. The Lexapro was only started on 06/06/2016 after his admission, but it was prescribed at [facility] prior to this admission. SOCIAL HISTORY: His within the past two months. 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 He has three children. MENTAL STATUS: He was confused and disoriented. He occasionally shouted out the name of Michael. He made fleeting eye contact. He uttered an occasional sound or word in response to questions. He did not answer any orientation questions. DIAGNOSIS: Delirium, toxic metabolic. RECOMMENDATIONS: Treatment of delirium at the discretion of the attending physician. I will sign off. [facility] Jeffrey Chaudhari M.D. / [id number] CC: Yamilex Kingsley M.D. UNKNOWN
[2016-06-05 19:14] LABS: ASCORBIC ACID (UR NOT ORDER) NEG (NEG); BILIRUBIN, URINE NEGATIVE (NEG); ER URINALYSIS TAT 0 Hrs 21 Mins; KETONE, URINE NEGATIVE (NEG); LEUKOCYTE ESTERASE(NOT OR LARGE (NEG); NITRITE (URINE) NEG (NEG)
[2016-06-05 19:16] LABS: WBC (NOT ORDERED) (RFLEX) > 182 (0-5)
[2016-06-05 19:21] LABS: LACTATE 1.2 MMOL/L (0.3-2.4)
[2016-06-05 19:24] LABS: BASOPHILS 0.1 %; BASOPHILS ABSOLUTE 0.01 10/3/uL (0.0-0.16); EOSINOPHILS 0.4 %; EOSINOPHILS ABSOLUTE 0.03 10/3/uL (0.0-0.53); ER CBC TAT 0 Hrs 15 Mins; HEMATOCRIT 32.6 % (40.0-51.0); HEMOGLOBIN 10.7 g/dL (13.6-17.8); IMMATURE GRANULOCYTES 0.7 %; IMMATURE GRANULOCYTES ABSOLUTE 0.06 10/3/uL (0.0-0.11); LYMPHOCYTES 16.5 %; LYMPHOCYTES ABSOLUTE 1.41 10/3/uL (0.67-4.30); MEAN CORPUS HGB CONC 32.8 g/dL (32.0-36.0); MEAN CORPUSCULAR HEMOGLOB 27.9 pg (26.0-34.0); MEAN CORPUSCULAR VOLUME 84.9 fL (80-100); MEAN PLATELET VOLUME 10.4 fL (9.2-13.0); MONOCYTES 10.3 %; MONOCYTES ABSOLUTE 0.88 10/3/uL (0.21-1.20); NEUTROPHILS ABSOLUTE 6.17 10/3/uL (2.02-8.40); PLATELET COUNT 275 10/3/uL (150-400); RBC DISTRIBUTION WIDTH 15.1 % (12.0-16.0); RED CELL COUNT 3.84 10/6/uL (4.7-6.1); WHITE BLOOD CELLS 8.6 10/3/uL (4.5-10.5)
[2016-06-05 19:25] LABS: MANUAL DIFF NO %
[2016-06-05 19:32] LABS: INTERNATIONAL NORMAL RATI 1.1 UNITS (-); PARTIAL THROMBO TIME 35.2 SEC (22.5-37.2)
[2016-06-05 19:41] LABS: A/G RATIO 0.4 (0.7-1.9); ALBUMIN 2.1 G/DL (3.5-5.0); CHLORIDE, SERUM 103 MMOL/L (96-112); CO2 (CARBON DIOXIDE) 26 MMOL/L (24-34); CREATININE 1.38 MG/DL (0.70-1.30); GFR AFRICAN AMERICAN 53 ML/MIN (>=60); GFR NON AFRICAN AMERICAN 45 ML/MIN (>=60); GLOBULIN 5.6 G/DL (2.5-4.1); GLUCOSE, SERUM 87 MG/DL (60-99); POTASSIUM, SERUM 4.1 MMOL/L (3.5-5.3); SGOT(AST) 22 U/L (5-40); SGPT(ALT) 18 U/L (5-65); SODIUM, SERUM 140 MMOL/L (135-148); TOTAL BILIRUBIN 0.4 MG/DL (0-1.2); TOTAL PROTEIN 7.7 G/DL (6.0-8.5)
[2016-06-05] MEDS ORDERED: PROTONIX PO (19:42)
[2016-06-05] MEDS ORDERED: REQUIP5 PO (19:42)
[2016-06-05] MEDS ORDERED: HUMALOG SC (19:42)
[2016-06-05] MEDS ORDERED: PRAVAC PO (19:42)
[2016-06-05 19:43] LABS: ALKALINE PHOSPHATASE 150 U/L (45-117); BUN (BLOOD UREA NITROGEN) 46 MG/DL (6-23); CALCIUM, SERUM 9.6 MG/DL (8.5-10.4)
[2016-06-05] MEDS ORDERED: LOP25 PO (19:43)
[2016-06-05] MEDS ORDERED: THERGRANM PO (19:43)
[2016-06-05] MEDS ORDERED: PROSCAR5 PO (19:43)
[2016-06-05] MEDS ORDERED: INSTA-GLUCOSE PO (19:44)
[2016-06-05] MEDS ORDERED: FERROUS SULF325 M1 PO (19:44)
[2016-06-05] MEDS ORDERED: D.O.S.100 MG PO (19:44)
[2016-06-05] MEDS ORDERED: HALF81 PO (19:44)
[2016-06-05] MEDS ORDERED: NORV5 PO (19:45)
[2016-06-05] MEDS ORDERED: ZOFRAN4 PO (19:45)
[2016-06-05] MEDS ORDERED: BENTYL10 PO (19:45)
[2016-06-05] MEDS ORDERED: AMB5 PO (19:45)
[2016-06-05] MEDS ORDERED: HYT5 PO (19:45)
[2016-06-05] MEDS ORDERED: PR25R PR (19:46)
[2016-06-05] MEDS ORDERED: PERCOCET 10/3251 TAB PO (19:46)
[2016-06-05] MEDS ORDERED: LEXAPRO10 PO (19:47)
[2016-06-05] MEDS ORDERED: DURA75 TOP (19:47)
[2016-06-05] MEDS ORDERED: MARI2.5 PO (19:47)
[2016-06-05] MEDS ORDERED: FLUCON1 PO (19:47)
[2016-06-05] MEDS ORDERED: L40 PO (20:17)
[2016-06-05] MEDS ORDERED: MIRALAX POWDER1 PKT PO (20:18)
[2016-06-05 20:47] LABS: PROCALCITONIN 0.12 ng/mL (<0.5)
[2016-06-06 04:19] LABS: BASOPHILS 0.1 %; BASOPHILS ABSOLUTE 0.01 10/3/uL (0.0-0.16); EOSINOPHILS 0.5 %; EOSINOPHILS ABSOLUTE 0.04 10/3/uL (0.0-0.53); HEMATOCRIT 31.9 % (40.0-51.0); HEMOGLOBIN 10.4 g/dL (13.6-17.8); IMMATURE GRANULOCYTES 0.9 %; IMMATURE GRANULOCYTES ABSOLUTE 0.07 10/3/uL (0.0-0.11); LYMPHOCYTES 14.8 %; LYMPHOCYTES ABSOLUTE 1.16 10/3/uL (0.67-4.30); MEAN CORPUS HGB CONC 32.6 g/dL (32.0-36.0); MEAN CORPUSCULAR HEMOGLOB 28.3 pg (26.0-34.0); MEAN CORPUSCULAR VOLUME 86.9 fL (80-100); MEAN PLATELET VOLUME 10.5 fL (9.2-13.0); MONOCYTES 10.9 %; MONOCYTES ABSOLUTE 0.85 10/3/uL (0.21-1.20); NEUTROPHILS 72.8 %; PLATELET COUNT 246 10/3/uL (150-400); RBC DISTRIBUTION WIDTH 15.1 % (12.0-16.0); RED CELL COUNT 3.67 10/6/uL (4.7-6.1); WHITE BLOOD CELLS 7.8 10/3/uL (4.5-10.5)
[2016-06-06 04:21] LABS: MANUAL DIFF NO %
[2016-06-06 04:31] LABS: INTERNATIONAL NORMAL RATI 1.2 UNITS (-); PARTIAL THROMBO TIME 36.6 SEC (22.5-37.2); PROTIME (NOT ORD) 15.1 SEC (12.0-14.5)
[2016-06-06 05:22] LABS: SED RATE 93 MM/HR (0-15)
[2016-06-06 06:06] LABS: A/G RATIO 0.4 (0.7-1.9); ALBUMIN 1.9 G/DL (3.5-5.0); CALCIUM, SERUM 9.1 MG/DL (8.5-10.4); CHLORIDE, SERUM 107 MMOL/L (96-112); CO2 (CARBON DIOXIDE) 24 MMOL/L (24-34); CREATININE 1.31 MG/DL (0.70-1.30); GFR AFRICAN AMERICAN 56 ML/MIN (>=60); GFR NON AFRICAN AMERICAN 48 ML/MIN (>=60); GLUCOSE, SERUM 92 MG/DL (60-99); POTASSIUM, SERUM 3.9 MMOL/L (3.5-5.3); PREALBUMIN 11.1 MG/DL (17.0-43.0); SGOT(AST) 20 U/L (5-40); SGPT(ALT) 17 U/L (5-65); SODIUM, SERUM 142 MMOL/L (135-148); TOTAL BILIRUBIN 0.3 MG/DL (0-1.2); TOTAL PROTEIN 6.9 G/DL (6.0-8.5)
[2016-06-06 06:11] LABS: ALKALINE PHOSPHATASE 135 U/L (45-117); BUN (BLOOD UREA NITROGEN) 42 MG/DL (6-23)
[2016-06-07 05:10] LABS: CALCIUM, SERUM 8.7 MG/DL (8.5-10.4); CHLORIDE, SERUM 111 MMOL/L (96-112); CO2 (CARBON DIOXIDE) 24 MMOL/L (24-34); CREATININE 1.17 MG/DL (0.70-1.30); GFR AFRICAN AMERICAN 64 ML/MIN (>=60); GFR NON AFRICAN AMERICAN 55 ML/MIN (>=60); GLUCOSE, SERUM 84 MG/DL (60-99); POTASSIUM, SERUM 4.2 MMOL/L (3.5-5.3); SODIUM, SERUM 143 MMOL/L (135-148)
[2016-06-07 05:11] LABS: BUN (BLOOD UREA NITROGEN) 36 MG/DL (6-23)
[2016-06-07 05:13] LABS: BASOPHILS 0.2 %; BASOPHILS ABSOLUTE 0.01 10/3/uL (0.0-0.16); EOSINOPHILS 0.6 %; EOSINOPHILS ABSOLUTE 0.04 10/3/uL (0.0-0.53); HEMATOCRIT 29.5 % (40.0-51.0); HEMOGLOBIN 9.3 g/dL (13.6-17.8); IMMATURE GRANULOCYTES 0.8 %; IMMATURE GRANULOCYTES ABSOLUTE 0.05 10/3/uL (0.0-0.11); LYMPHOCYTES 15.2 %; LYMPHOCYTES ABSOLUTE 1.01 10/3/uL (0.67-4.30); MEAN CORPUS HGB CONC 31.5 g/dL (32.0-36.0); MEAN CORPUSCULAR HEMOGLOB 27.8 pg (26.0-34.0); MEAN CORPUSCULAR VOLUME 88.1 fL (80-100); MEAN PLATELET VOLUME 10.7 fL (9.2-13.0); MONOCYTES 12.2 %; MONOCYTES ABSOLUTE 0.81 10/3/uL (0.21-1.20); NEUTROPHILS ABSOLUTE 4.71 10/3/uL (2.02-8.40); PLATELET COUNT 227 10/3/uL (150-400); RBC DISTRIBUTION WIDTH 15.3 % (12.0-16.0); RED CELL COUNT 3.35 10/6/uL (4.7-6.1); WHITE BLOOD CELLS 6.6 10/3/uL (4.5-10.5)
[2016-06-07 05:21] LABS: MANUAL DIFF NO %
[2016-06-08 08:06] LABS: HEMATOCRIT 30.4 % (40.0-51.0); HEMOGLOBIN 9.3 g/dL (13.6-17.8); MEAN CORPUS HGB CONC 30.6 g/dL (32.0-36.0); MEAN CORPUSCULAR HEMOGLOB 27.3 pg (26.0-34.0); MEAN CORPUSCULAR VOLUME 89.1 fL (80-100); MEAN PLATELET VOLUME 10.1 fL (9.2-13.0); PLATELET COUNT 212 10/3/uL (150-400); RBC DISTRIBUTION WIDTH 15.5 % (12.0-16.0); RED CELL COUNT 3.41 10/6/uL (4.7-6.1); WHITE BLOOD CELLS 7.1 10/3/uL (4.5-10.5)
[2016-06-08 08:10] LABS: MANUAL DIFF YES %
[2016-06-08 08:23] LABS: CALCIUM, SERUM 8.7 MG/DL (8.5-10.4); CHLORIDE, SERUM 111 MMOL/L (96-112); CREATININE 1.09 MG/DL (0.70-1.30); GFR AFRICAN AMERICAN 70 ML/MIN (>=60); GFR NON AFRICAN AMERICAN 60 ML/MIN (>=60); GLUCOSE, SERUM 76 MG/DL (60-99); POTASSIUM, SERUM 4.2 MMOL/L (3.5-5.3); SODIUM, SERUM 141 MMOL/L (135-148)
[2016-06-08 08:26] LABS: BUN (BLOOD UREA NITROGEN) 28 MG/DL (6-23); CO2 (CARBON DIOXIDE) 19 MMOL/L (24-34)
[2016-06-08 08:53] LABS: BAND NEUTROPHILS 2 %; LYMPHOCYTES 12 %; LYMPHOCYTES ABSOLUTE (CALC) 0.85 10/3/uL (0.67-4.30); MONOCYTES 9 %; MONOCYTES ABSOLUTE (CALC) 0.64 10/3/uL (0.21-1.20); NEUTROPHILS ABSOLUTE (CALC) 5.61 10/3/uL (2.02-8.40); PLATELET ESTIMATE ADQ (ADEQUATE); RBC MORPHOLOGY NORM (NORMAL); SEGMENTED NEUTROPHIL (0) 77 %; TOTAL NUCLEATED CELLS 100
[2016-06-09 02:16] LABS: BASOPHILS 0 %; EOSINOPHILS 0.4 %; EOSINOPHILS ABSOLUTE 0.03 10/3/uL (0.0-0.53); HEMATOCRIT 27.9 % (40.0-51.0); IMMATURE GRANULOCYTES 0.7 %; IMMATURE GRANULOCYTES ABSOLUTE 0.05 10/3/uL (0.0-0.11); LYMPHOCYTES 15.5 %; LYMPHOCYTES ABSOLUTE 1.14 10/3/uL (0.67-4.30); MEAN CORPUSCULAR HEMOGLOB 28.2 pg (26.0-34.0); MEAN CORPUSCULAR VOLUME 87.5 fL (80-100); MONOCYTES 9.9 %; MONOCYTES ABSOLUTE 0.73 10/3/uL (0.21-1.20); NEUTROPHILS 73.5 %; NEUTROPHILS ABSOLUTE 5.39 10/3/uL (2.02-8.40); PLATELET COUNT 202 10/3/uL (150-400); RBC DISTRIBUTION WIDTH 15.1 % (12.0-16.0); RED CELL COUNT 3.19 10/6/uL (4.7-6.1); WHITE BLOOD CELLS 7.3 10/3/uL (4.5-10.5)
[2016-06-09 02:17] LABS: MANUAL DIFF NO %; MEAN CORPUS HGB CONC 32.3 g/dL (32.0-36.0)
[2016-06-09 02:34] LABS: BUN (BLOOD UREA NITROGEN) 31 MG/DL (6-23); CALCIUM, SERUM 8.9 MG/DL (8.5-10.4); CHLORIDE, SERUM 109 MMOL/L (96-112); CREATININE 1.09 MG/DL (0.70-1.30); GFR AFRICAN AMERICAN 70 ML/MIN (>=60); GFR NON AFRICAN AMERICAN 60 ML/MIN (>=60); POTASSIUM, SERUM 4.1 MMOL/L (3.5-5.3); SODIUM, SERUM 140 MMOL/L (135-148); VANCOMYCIN TROUGH 17.8 MCG/ML (10.0-20.0)
[2016-06-09 02:44] LABS: CO2 (CARBON DIOXIDE) 28 MMOL/L (24-34); GLUCOSE, SERUM 98 MG/DL (60-99)
[2016-06-10 07:21] LABS: BASOPHILS 0 %; EOSINOPHILS 0.1 %; EOSINOPHILS ABSOLUTE 0.01 10/3/uL (0.0-0.53); HEMATOCRIT 31.2 % (40.0-51.0); IMMATURE GRANULOCYTES 0.8 %; IMMATURE GRANULOCYTES ABSOLUTE 0.07 10/3/uL (0.0-0.11); LYMPHOCYTES 14.8 %; MANUAL DIFF NO %; MEAN CORPUS HGB CONC 32.1 g/dL (32.0-36.0); MEAN CORPUSCULAR HEMOGLOB 27.6 pg (26.0-34.0); MEAN CORPUSCULAR VOLUME 86.2 fL (80-100); MONOCYTES 9.9 %; MONOCYTES ABSOLUTE 0.87 10/3/uL (0.21-1.20); NEUTROPHILS 74.4 %; NEUTROPHILS ABSOLUTE 6.53 10/3/uL (2.02-8.40); PLATELET COUNT 247 10/3/uL (150-400); RBC DISTRIBUTION WIDTH 15.2 % (12.0-16.0); RED CELL COUNT 3.62 10/6/uL (4.7-6.1); WHITE BLOOD CELLS 8.8 10/3/uL (4.5-10.5)
[2016-06-10 07:34] LABS: BUN (BLOOD UREA NITROGEN) 33 MG/DL (6-23); CALCIUM, SERUM 9.3 MG/DL (8.5-10.4); CHLORIDE, SERUM 107 MMOL/L (96-112); CO2 (CARBON DIOXIDE) 27 MMOL/L (24-34); CREATININE 1.19 MG/DL (0.70-1.30); GFR AFRICAN AMERICAN 63 ML/MIN (>=60); GFR NON AFRICAN AMERICAN 54 ML/MIN (>=60); GLUCOSE, SERUM 126 MG/DL (60-99); POTASSIUM, SERUM 3.6 MMOL/L (3.5-5.3); SODIUM, SERUM 140 MMOL/L (135-148)
[2016-06-11 02:38] LABS: BUN (BLOOD UREA NITROGEN) 31 MG/DL (6-23); CALCIUM, SERUM 9.2 MG/DL (8.5-10.4); CHLORIDE, SERUM 112 MMOL/L (96-112); CO2 (CARBON DIOXIDE) 25 MMOL/L (24-34); CREATININE 1.22 MG/DL (0.70-1.30); GFR AFRICAN AMERICAN 61 ML/MIN (>=60); GFR NON AFRICAN AMERICAN 53 ML/MIN (>=60); GLUCOSE, SERUM 136 MG/DL (60-99); POTASSIUM, SERUM 3.9 MMOL/L (3.5-5.3); SODIUM, SERUM 145 MMOL/L (135-148); VANCOMYCIN TROUGH 25.5 MCG/ML (10.0-20.0)
[2016-06-11 02:49] LABS: HEMATOCRIT 28.7 % (40.0-51.0); HEMOGLOBIN 9.3 g/dL (13.6-17.8); MEAN CORPUS HGB CONC 32.4 g/dL (32.0-36.0); MEAN CORPUSCULAR HEMOGLOB 28.2 pg (26.0-34.0); MEAN PLATELET VOLUME 10.7 fL (9.2-13.0); NUCLEATED RED BLOOD CELLS 0.7 /100WBC (0-0); PLATELET COUNT 228 10/3/uL (150-400); RBC DISTRIBUTION WIDTH 15.6 % (12.0-16.0); WHITE BLOOD CELLS 7.7 10/3/uL (4.5-10.5)
[2016-06-11 02:51] LABS: MANUAL DIFF YES %
[2016-06-11 03:03] LABS: LYMPHOCYTES 9 %; LYMPHOCYTES ABSOLUTE (CALC) 0.69 10/3/uL (0.67-4.30); MONOCYTES 3 %; MONOCYTES ABSOLUTE (CALC) 0.23 10/3/uL (0.21-1.20); NEUTROPHILS ABSOLUTE (CALC) 6.78 10/3/uL (2.02-8.40); PLATELET ESTIMATE ADQ (ADEQUATE); RBC MORPHOLOGY NORM (NORMAL); SEGMENTED NEUTROPHIL (0) 88 %; TOTAL NUCLEATED CELLS 100
[2016-06-12 06:42] LABS: BASOPHILS 0.1 %; BASOPHILS ABSOLUTE 0.01 10/3/uL (0.0-0.16); EOSINOPHILS 0.5 %; EOSINOPHILS ABSOLUTE 0.04 10/3/uL (0.0-0.53); HEMOGLOBIN 9.6 g/dL (13.6-17.8); IMMATURE GRANULOCYTES 0.6 %; IMMATURE GRANULOCYTES ABSOLUTE 0.05 10/3/uL (0.0-0.11); LYMPHOCYTES 17.4 %; LYMPHOCYTES ABSOLUTE 1.51 10/3/uL (0.67-4.30); MEAN CORPUSCULAR HEMOGLOB 27.4 pg (26.0-34.0); MEAN CORPUSCULAR VOLUME 88.6 fL (80-100); MEAN PLATELET VOLUME 10.7 fL (9.2-13.0); MONOCYTES 7.9 %; MONOCYTES ABSOLUTE 0.69 10/3/uL (0.21-1.20); NEUTROPHILS 73.5 %; PLATELET COUNT 242 10/3/uL (150-400); WHITE BLOOD CELLS 8.7 10/3/uL (4.5-10.5)
[2016-06-12 06:45] LABS: MANUAL DIFF NO %
[2016-06-12 06:58] LABS: CHLORIDE, SERUM 112 MMOL/L (96-112); CO2 (CARBON DIOXIDE) 24 MMOL/L (24-34); CREATININE 1.14 MG/DL (0.70-1.30); GFR AFRICAN AMERICAN 66 ML/MIN (>=60); GFR NON AFRICAN AMERICAN 57 ML/MIN (>=60); SODIUM, SERUM 145 MMOL/L (135-148)
[2016-06-12 06:59] LABS: BUN (BLOOD UREA NITROGEN) 26 MG/DL (6-23); GLUCOSE, SERUM 76 MG/DL (60-99)
[2016-06-13 09:08] LABS: BASOPHILS 0.1 %; BASOPHILS ABSOLUTE 0.01 10/3/uL (0.0-0.16); EOSINOPHILS 0.1 %; EOSINOPHILS ABSOLUTE 0.01 10/3/uL (0.0-0.53); HEMOGLOBIN 9.1 g/dL (13.6-17.8); IMMATURE GRANULOCYTES 0.5 %; IMMATURE GRANULOCYTES ABSOLUTE 0.04 10/3/uL (0.0-0.11); LYMPHOCYTES 16.6 %; LYMPHOCYTES ABSOLUTE 1.43 10/3/uL (0.67-4.30); MEAN CORPUS HGB CONC 32.5 g/dL (32.0-36.0); MEAN CORPUSCULAR HEMOGLOB 27.6 pg (26.0-34.0); MEAN PLATELET VOLUME 10.4 fL (9.2-13.0); MONOCYTES 8.4 %; MONOCYTES ABSOLUTE 0.72 10/3/uL (0.21-1.20); NEUTROPHILS 74.3 %; NEUTROPHILS ABSOLUTE 6.41 10/3/uL (2.02-8.40); PLATELET COUNT 241 10/3/uL (150-400); RBC DISTRIBUTION WIDTH 15.8 % (12.0-16.0); WHITE BLOOD CELLS 8.6 10/3/uL (4.5-10.5)
[2016-06-13 09:09] LABS: MANUAL DIFF NO %; MEAN CORPUSCULAR VOLUME 84.8 fL (80-100)
[2016-06-13 09:13] LABS: INTERNATIONAL NORMAL RATI 1.2 UNITS (-); PROTIME (NOT ORD) 14.7 SEC (12.0-14.5)
[2016-06-13 09:14] LABS: PARTIAL THROMBO TIME 46.1 SEC (22.5-37.2)
[2016-06-13 09:21] LABS: BUN (BLOOD UREA NITROGEN) 25 MG/DL (6-23); CALCIUM, SERUM 9.5 MG/DL (8.5-10.4); CHLORIDE, SERUM 114 MMOL/L (96-112); CO2 (CARBON DIOXIDE) 24 MMOL/L (24-34); GFR AFRICAN AMERICAN 62 ML/MIN (>=60); GFR NON AFRICAN AMERICAN 54 ML/MIN (>=60); GLUCOSE, SERUM 89 MG/DL (60-99); POTASSIUM, SERUM 3.5 MMOL/L (3.5-5.3); SODIUM, SERUM 146 MMOL/L (135-148)
[2016-06-14 05:29] LABS: BASOPHILS 0 %; BUN (BLOOD UREA NITROGEN) 27 MG/DL (6-23); CALCIUM, SERUM 9.5 MG/DL (8.5-10.4); CHLORIDE, SERUM 115 MMOL/L (96-112); CO2 (CARBON DIOXIDE) 22 MMOL/L (24-34); EOSINOPHILS 0.5 %; EOSINOPHILS ABSOLUTE 0.04 10/3/uL (0.0-0.53); GFR AFRICAN AMERICAN 69 ML/MIN (>=60); GFR NON AFRICAN AMERICAN 60 ML/MIN (>=60); GLUCOSE, SERUM 88 MG/DL (60-99); HEMATOCRIT 29.4 % (40.0-51.0); HEMOGLOBIN 9.6 g/dL (13.6-17.8); IMMATURE GRANULOCYTES 0.4 %; IMMATURE GRANULOCYTES ABSOLUTE 0.03 10/3/uL (0.0-0.11); LYMPHOCYTES 19.1 %; LYMPHOCYTES ABSOLUTE 1.58 10/3/uL (0.67-4.30); MEAN CORPUS HGB CONC 32.7 g/dL (32.0-36.0); MEAN CORPUSCULAR HEMOGLOB 28.3 pg (26.0-34.0); MEAN CORPUSCULAR VOLUME 86.7 fL (80-100); MEAN PLATELET VOLUME 10.6 fL (9.2-13.0); MONOCYTES 9.4 %; MONOCYTES ABSOLUTE 0.78 10/3/uL (0.21-1.20); NEUTROPHILS 70.6 %; NEUTROPHILS ABSOLUTE 5.86 10/3/uL (2.02-8.40); PLATELET COUNT 243 10/3/uL (150-400); POTASSIUM, SERUM 4.1 MMOL/L (3.5-5.3); RBC DISTRIBUTION WIDTH 16.5 % (12.0-16.0); RED CELL COUNT 3.39 10/6/uL (4.7-6.1); SODIUM, SERUM 146 MMOL/L (135-148); WHITE BLOOD CELLS 8.3 10/3/uL (4.5-10.5)
[2016-06-14 05:31] LABS: MANUAL DIFF NO %
[2016-06-14] MEDS ORDERED: HUMALOGPEN SC (09:12)
== END 2016-06-14 17:36 | DRG 539 ==
LOC: ER 18:30 → 5SO 20:38
PROVIDERS: Hospitalist; Internal Medicine; Nurse Practitioner; Nurse Practitioner Acute Care
PROC: 0J9730Z Drainage of Back Subcutaneous Tissue and Fascia with Drainage Device, Percutaneous Approach (ICD-10-PCS; principal; 2016-06-07)
PROC: 0JP Subcutaneous Tissue and Fascia, Removal (ICD-10-PCS; 2016-06-13)
PROC: 02HV33Z Insertion of Infusion Device into Superior Vena Cava, Percutaneous Approach (ICD-10-PCS; 2016-06-14)
PROC: 4A02X4A Measurement of Cardiac Electrical Activity, Guidance, External Approach (ICD-10-PCS; 2016-06-14)
DX: M86.8X8 Other osteomyelitis, other site (principal); E43 Unspecified severe protein-calorie malnutrition; G92 Toxic encephalopathy; L89.213 Pressure ulcer of right hip, stage 3; R53.2 Functional quadriplegia; C61 Malignant neoplasm of prostate; E11.22 Type 2 diabetes mellitus with diabetic chronic kidney disease; L89.223 Pressure ulcer of left hip, stage 3; B95.62 Methicillin resistant Staphylococcus aureus infection as the cause of diseases classified elsewhere; I12.9 Hypertensive chronic kidney disease with stage 1 through stage 4 chronic kidney disease, or unspecified chronic kidney disease; B96.5 Pseudomonas (aeruginosa) (mallei) (pseudomallei) as the cause of diseases classified elsewhere; T83.518A Infection and inflammatory reaction due to other urinary catheter, initial encounter; N39.0 Urinary tract infection, site not specified; N31.9 Neuromuscular dysfunction of bladder, unspecified; N18.3 Chronic kidney disease, stage 3 (moderate); I25.10 Atherosclerotic heart disease of native coronary artery without angina pectoris; N40.0 Benign prostatic hyperplasia without lower urinary tract symptoms; F32.9 Major depressive disorder, single episode, unspecified; G25.81 Restless legs syndrome; R62.7 Adult failure to thrive; Z74.01 Bed confinement status; Z90.49 Acquired absence of other specified parts of digestive tract; Z98.890 Other specified postprocedural states; Z88.0 Allergy status to penicillin; Z95.5 Presence of coronary angioplasty implant and graft; Z99.3 Dependence on wheelchair; Z88.6 Allergy status to analgesic agent; Z87.440 Personal history of urinary (tract) infections; Z88.5 Allergy status to narcotic agent; Z87.891 Personal history of nicotine dependence; Z82.49 Family history of ischemic heart disease and other diseases of the circulatory system; Z82.3 Family history of stroke; Z80.8 Family history of malignant neoplasm of other organs or systems; Z79.899 Other long term (current) drug therapy; Z85.46 Personal history of malignant neoplasm of prostate; T50.995A Adverse effect of other drugs, medicaments and biological substances, initial encounter
CPT/HCPCS: 10030; 36569; 49418; 49424; 70450; 71010; 72192; 73721-LT; 74270; 76080; 80048; 80053; 80202; 81001; 82962; 83605; 83735; 84134; 84145; 84443; 85025; 85610; 85652; 85730; 87015; 87040; 87070; 87075; 87077; 87086; 87116; 87186; 87205; 93005; 96374; 96375; 97110-GO; 97110-GP; 97162-GP; 97166-GO; 99285; A9270-GY; C1751; C1769; G8978-CM-GP; G8979-CM-GP; G8980-CL-GP; G8987-CL-GO; G8988-CK-GO; J0360; J0692; J1170; J2405; J2550; J3370; J3411; Q9967

== ENCOUNTER 2016-07-01 14:44 | Emergency (ER) | payer MEDICARE, OTHER ==
[~2016-07-01 14:44] MED LIST changes: +AMB5 PO; +D.O.S.100 MG PO; +DURA75 TOP; +FLUCON1 PO; +HUMALOG SC; +HUMALOGPEN SC; +INSTA-GLUCOSE PO; +LEXAPRO10 PO; +MARI2.5 PO; +PERCOCET 10/3251 TAB PO; +PR25R PR; +THERGRANM PO; +ZOFRAN4 PO
[2016-07-01 15:19] LABS: BASOPHILS 0 %; EOSINOPHILS 0.8 %; EOSINOPHILS ABSOLUTE 0.06 10/3/uL (0.0-0.53); ER CBC TAT 0 Hrs 05 Mins; HEMATOCRIT 27.2 % (40.0-51.0); HEMOGLOBIN 8.7 g/dL (13.6-17.8); IMMATURE GRANULOCYTES 0.5 %; IMMATURE GRANULOCYTES ABSOLUTE 0.04 10/3/uL (0.0-0.11); LYMPHOCYTES 14.9 %; LYMPHOCYTES ABSOLUTE 1.18 10/3/uL (0.67-4.30); MANUAL DIFF NO %; MEAN CORPUSCULAR HEMOGLOB 28.4 pg (26.0-34.0); MEAN CORPUSCULAR VOLUME 88.9 fL (80-100); MONOCYTES ABSOLUTE 0.95 10/3/uL (0.21-1.20); NEUTROPHILS 71.8 %; NEUTROPHILS ABSOLUTE 5.69 10/3/uL (2.02-8.40); PLATELET COUNT 240 10/3/uL (150-400); RBC DISTRIBUTION WIDTH 16.4 % (12.0-16.0); RED CELL COUNT 3.06 10/6/uL (4.7-6.1); WHITE BLOOD CELLS 7.9 10/3/uL (4.5-10.5)
[2016-07-01 15:29] LABS: ASCORBIC ACID (UR NOT ORDER) NEG (NEG); BILIRUBIN, URINE NEGATIVE (NEG); ER URINALYSIS TAT 0 Hrs 16 Mins; KETONE, URINE NEGATIVE (NEG); LEUKOCYTE ESTERASE(NOT OR LARGE (NEG); NITRITE (URINE) NEG (NEG); WBC (NOT ORDERED) (RFLEX) > 182 (0-5)
[2016-07-01 15:34] LABS: A/G RATIO 0.4 (0.7-1.9); ALBUMIN 1.6 G/DL (3.5-5.0); BUN (BLOOD UREA NITROGEN) 29 MG/DL (6-23); CALCIUM, SERUM 8.7 MG/DL (8.5-10.4); CHLORIDE, SERUM 112 MMOL/L (96-112); GFR AFRICAN AMERICAN 52 ML/MIN (>=60); GFR NON AFRICAN AMERICAN 45 ML/MIN (>=60); GLOBULIN 4.3 G/DL (2.5-4.1); POTASSIUM, SERUM 4.3 MMOL/L (3.5-5.3); SGOT(AST) 18 U/L (5-40); SGPT(ALT) 13 U/L (5-65); SODIUM, SERUM 143 MMOL/L (135-148); TOTAL BILIRUBIN 0.2 MG/DL (0-1.2); TOTAL PROTEIN 5.9 G/DL (6.0-8.5)
[2016-07-01 15:35] LABS: ALKALINE PHOSPHATASE 123 U/L (45-117); CO2 (CARBON DIOXIDE) 27 MMOL/L (24-34); GLUCOSE, SERUM 153 MG/DL (60-99)
[2016-07-01 15:36] LABS: LACTATE 0.8 MMOL/L (0.3-2.4)
[2016-07-01 16:06] LABS: PROCALCITONIN 0.17 ng/mL (<0.5)
== END 2016-07-01 20:59 | disposition home or self-care (01) ==
LOC: ER 14:44
PROVIDERS: Nurse Practitioner
DX: N39.0 Urinary tract infection, site not specified (principal); R82.71 Bacteriuria; R41.82 Altered mental status, unspecified; N18.9 Chronic kidney disease, unspecified; D64.9 Anemia, unspecified; M86.9 Osteomyelitis, unspecified; L89.90 Pressure ulcer of unspecified site, unspecified stage; E88.09 Other disorders of plasma-protein metabolism, not elsewhere classified; F32.9 Major depressive disorder, single episode, unspecified; E11.9 Type 2 diabetes mellitus without complications; C61 Malignant neoplasm of prostate; Z90.49 Acquired absence of other specified parts of digestive tract; Z98.890 Other specified postprocedural states; Z88.0 Allergy status to penicillin; Z88.1 Allergy status to other antibiotic agents; Z88.2 Allergy status to sulfonamides; Z88.5 Allergy status to narcotic agent; Z88.6 Allergy status to analgesic agent; Z79.82 Long term (current) use of aspirin; Z79.4 Long term (current) use of insulin; Z79.899 Other long term (current) drug therapy
CPT/HCPCS: 80053; 81001; 83605; 84145; 85025; 87040; 87077; 87086; 87186; 96374; 99285

== ENCOUNTER 2016-07-29 15:25 | Inpatient (IN) | payer MEDICARE, OTHER ==
--- NOTE | ~2016-07-29 | HP ---
History And Physical [place] [id number] [facility] [place]. [address] NAME: GRICELDA GIPSON : [birth year] STATUS : ADM IN [facility]#: [id number] AGE: 89 ADM/REG DATE : 07/29/16 MR#: [id number] REPORT SERV DATE: 07/29/16 DICTATED BY: LILLIAN LANIER DATE: 07/29/16 REPORT STATUS : Draft TRANSCRIBED BY: MODL DATE: 07/29/16 DATE OF ADMISSION: 07/29/2016 CHIEF COMPLAINT: Sent from retirement facility because of the weakness, back pain, decreased appetite, decubitus ulcers, and failure to thrive. 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 At that time, he underwent surgery. He still has wound VAC pack. He is followed by [facility]. [facility] and he also apparently has a PICC line with continuous antibiotics, still on vancomycin per Dr. Crowley. Some mild cognitive impairment, history of anemia, history of chronic kidney disease stage 3, and apparently recent pneumonia. Brought to [facility] from the retirement facility due to progressive weakness, some confusion, decreased appetite, increased debility, some upper extremity edema, as well as increased pain and discomfort of the sacral area. The patient has a chronic Preciado catheter and he has multiple recurrent urinary tract infections. As I said, he also has failure to thrive with very poor appetite. His son who is accompanying his father, says that recently he has also trouble swallowing and eating, but otherwise, he denies any chest pain or shortness of breath. No PND or orthopnea. No cough. No fever. No chills. No abdominal pain. No nausea or vomiting. He does have some confusion. He denies any diarrhea or constipation, but he is complaining of back pain. The patient has been evaluated in the emergency room and Hospitalist Service has been asked for admission, further evaluation, and treatment. PAST MEDICAL HISTORY: Significant for coronary artery disease, prior stent; neurogenic bladder with a chronic Preciado catheter, multiple prior UTI and cystitis; history of chronic kidney disease stage 3; history of anemia; history of prior MRSA, with MRSA bacteremia; history of osteomyelitis with decubitus ulcer; history of hypertension; history of BPH; history of prostate cancer; history of depression and anxiety; and restless legs syndrome. PAST SURGICAL HISTORY: Includes TURP; skin cancer removal, debridement in the past; appendectomy; lumbar spine surgery in 2006 and 2007; as well as he also had sacral wound abscess with MRSA, suspected fistula, and he underwent surgery performed by Dr. Barker. ALLERGIES: NSAIDS, PENICILLIN, SULFA, ASPIRIN, AND KEFLEX. FAMILY HISTORY: Significant for coronary artery disease and dementia. SOCIAL HISTORY: He is not a smoker. He quit more than 30 years ago. No alcohol. No IV drugs. He is a and he is a resident of retirement facility. PHYSICAL EXAMINATION: VITAL SIGNS: He is afebrile. Blood pressure is 130/67, heart rate is 87, respiratory rate History And Physical [address] [address] NAME: GRICELDA GIPSON : [birth year] STATUS : ADM IN [facility]#: [id number] AGE: 89 ADM/REG DATE : 07/29/16 MR#: [id number] REPORT SERV DATE: 07/29/16 DICTATED BY: LILLIAN LANIER DATE: 07/29/16 REPORT STATUS : Draft TRANSCRIBED BY: CAIO DATE: 07/29/16 is 20 to 24, saturating 100% on room air. GENERAL: He is a chronically sick-appearing gentleman, in some distress secondary to the described sacral decubitus pain. Very dry appearing and pale. HEENT: Pupils equal, round, and reactive to light. Extraocular movements intact. No JVD. No lymphadenopathy. No thyromegaly appreciated. Dry mucous membranes. NECK: Trachea midline. No thyromegaly appreciated. CHEST: Bilateral air entry. Decreased breath sounds bibasilarly. No wheezes, crackles, or rhonchi appreciated. CARDIOVASCULAR: Regular rate and rhythm. S1, S2 positive. No S3, no S4. No murmurs, rubs, or gallops appreciated. ABDOMEN: Soft with positive bowel sounds. Nontender. No guarding. No rebound. EXTREMITIES: No clubbing, cyanosis, or edema. There is a sacral wound that does not appear infected, it is about 3.5 to 2.5 cm that is packed. LABORATORY DATA: Labs from today include sodium of 146, potassium 3.5, chloride 113, CO2 of 25, BUN 30, creatinine 1.42. His glucose is 90. His total protein is 6.1, albumin 1.6, globulin 4.5, total bilirubin 0.3, alkaline phosphatase 121, ALT 9, AST 13. His white count is 10.7, hemoglobin 8.1, hematocrit 25, and platelets are 219. His UA is positive for large leukocyte esterase, occasional bacteria, many white cells. Urine cultures currently are pending. ASSESSMENT: This is a very pleasant 89-year-old gentleman with: 1. Urinary tract infection in a patient with chronic Preciado catheter. 2. 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 3. Acute on chronic kidney disease. 4. 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 5. Anemia. 6. Failure to thrive with hypoalbuminemia. 7. Diabetes type 2, insulin dependent. 8. Hypertension. 9. Dysphagia. PLAN: 1. The patient is going to be admitted to Hospitalist Service. We are going to change Preciado catheter. Vigorous IV hydration. Start him on broad-spectrum antibiotics with Azactam and vancomycin. Panculture. Follow up his UA urine culture. We will check blood cultures. We are going to get a CAT scan of the abdomen and pelvis without contrast. We are going to consult Infectious Disease for further recommendation as well as Dr. Barker. We are going to get a CAT scan of the abdomen and pelvis without contrast. Consult with wound nurse as well. 2. Acute on chronic kidney disease. Change the Preciado. Vigorous IV hydration. I am going to give him some albumin with Lasix today. Strict I's and O's. Strict daily weights. 3. History of sacral osteomyelitis with sacral wound abscess, status post surgery. We are going to get a CAT scan of the abdomen and pelvis without contrast. Consult Dr. Barker and wound nurse as well as Infectious Disease. 4. Mild encephalopathy, probably multifactorial. Hopefully, while the infection is going to be treated, the mental status will improve. History And Physical [address] [place]. [address] NAME: GRICELDA GIPSON : [birth year] STATUS : ADM IN PAT#: [id number] AGE: 89 ADM/REG DATE : 07/29/16 MR#: [id number] REPORT SERV DATE: 07/29/16 DICTATED BY: LILLIAN LANIER DATE: 07/29/16 REPORT STATUS : Draft TRANSCRIBED BY: MODJayla DATE: 07/29/16 5. Anemia, probably multifactorial. We are going to transfuse him 1 unit of packed red blood cells, guaiac all his stools, check anemia studies as well. 6. Dysphagia. We will keep the patient n.p.o. except medication. Provide IV fluids. Speech and Swallow evaluate and treat in the morning. We are going to give him some albumin and Lasix and check on prealbumin level. 7. Diabetes type 2. While the patient is n.p.o., Accu-Cheks q.6 hours. Sliding scale insulin subcutaneously level 1. We will check a hemoglobin A1c. 8. Chronic back pain. Continue his Duragesic patch and provide p.r.n. Dilaudid as needed. 9. Hypertension. We will continue his home medications and provide p.r.n. hydralazine as needed. 10.We are going to provide reasonable pain and nausea control as well as GI and DVT prophylaxis. That has been discussed extensively with the patient as well as the patient's son all the questions have been answered in full. 11.The patient is DNR according to the patient's wishes well stated. He does not want any resuscitation, no chest compression, no intubation, no mechanical ventilation, no defibrillation or cardioversion, no medication to treat life-threatening arrhythmia or hemodynamic deterioration according to the patient's wishes prior stated. We are going to honor the patient's and family's wishes and make him Do Not Resuscitate. 12.Further workup and recommendation pending above. It is worthwhile to note that the patient is going to be followed up by Hospitalist Service. CF/CAIO Lillian Lanier M.D. / [id number] CC: Jesus Bhatia II, MD
--- NOTE | ~2016-07-29 | CN ---
Consultation Report [facility] [address] [place]. [address] NAME: GRICELDA GIPSON : [birth year] STATUS : ADM IN PAT#: [id number] AGE: 89 ADM/REG DATE : 07/29/16 MR#: [id number] REPORT SERV DATE: 07/30/16 DICTATED BY: ZULMA BARKER III DATE: 07/30/16 REPORT STATUS : Draft TRANSCRIBED BY: MODL DATE: 07/30/16 SURGICAL WOUND HEALING CONSULTATION DATE OF CONSULTATION: 07/30/2016 HISTORY OF PRESENT ILLNESS: The patient is an 89-year-old white male, known to me through several admissions in through [facility] where I have attended him for approximately a year or more. The patient is readmitted with multiple issues by the Hospitalist Service yesterday. The patient's primary issues; urinary tract infection, hypertension, chronic Preciado catheter drainage, acute chronic kidney disease, and malnutrition. He has a large sacral injury which has been progressing and not responding to therapy primarily due to the nutritional deficits. He has been managed with wound VAC as palliation due to the use of the VAC for pain control, and secretion control. PAST MEDICAL HISTORY: He is functionally paraplegic due to spinal stenosis and he is mentally altered. CT of the head has shown diffuse white matter deficits in the past. He has a history of hypertension, cardiac stents in 2012 and 2013, edema in bilateral legs, and has had surgery for arthritis, joint pain, lumbar spine stenosis, and osteomyelitis. He has history of GERD. He has had an appendectomy and colonoscopy in 2013. History of frequent UTIs, self cath until recently at which time a Preciado catheter has been placed. He has a problem with his bladder not emptying due to a neurogenic bladder. He is followed by Dr. Willis Newton in the past. He has chronic kidney disease stage III, history of prostate cancer, and neurogenic bladder. History of left buttock ulceration and the patient has a history of back surgery in 2006 and 2007, appendectomy remotely, colonoscopy in 2013, Achilles heel surgery in late , and he has had multiple debridements of the buttocks and sacral ulcer on 10/26/2015, as well as cystoscopies, and bladder ulcer excisions. PHYSICAL EXAMINATION: GENERAL: He is a debilitated white male, oriented to person only. Occasionally knows where he is, but not constantly. HEENT: Very little lateralization, mostly keeps his eyes closed, but chants prayers for the most part constantly. NECK: He has a neck that is with diminished range of motion secondary to osteoarthritis and age, has atrophy of the neck, bitemporal wasting and chest was decreased with inspiratory effort with a few rhonchi in the bases. HEART: Regular rate and rhythm with occasional extrasystole. ABDOMEN: Soft, but diffusely tender, everywhere you touch him he seems tender in his legs, arms, back, and all over. MUSCULOSKELETAL: His sacral ulceration is opening 3.5 x 6.5 with a 7 cm deep depth undermining circumferentially of greater than 6 cm. There is no active fasciitis, but bone is exposed, an area of the sacrum that is approximately 1 x 3 cm in size with obvious osteomyelitic clinical findings due to the exposure of the bone and softness there. There was no tracking. The patient had some deep tissue injury on the right gluteal folds just above the side that was over an area fairly extended 8.5 x 10 cm area of bluish Consultation Report [place] [id number] [facility] [place]. [address] NAME: GRICELDA GIPSON : [birth year] STATUS : ADM IN [facility]#: [id number] AGE: 89 ADM/REG DATE : 07/29/16 MR#: [id number] REPORT SERV DATE: 07/30/16 DICTATED BY: ZULMA BARKER III DATE: 07/30/16 REPORT STATUS : Draft TRANSCRIBED BY: MODL DATE: 07/30/16 discoloration and cyanosis. This was and removed from the sacral ulceration. EXTREMITIES: Grossly atrophic and rigid due to paralysis. IMPRESSION: Multiple system issues secondary to malnutrition, osteoarthritis, spinal stenosis, organic brain syndrome, and the other issues as listed above. We would recommend a wound VAC for comfort measurement, control of secretions and palliation. Tube feedings have been declined in the past by the patient's family, and palliative care would be recommended or hospice care if they would agree. AURELIO/CAIO Zulma Barker III, M.D. / [id number] CC: Thomas Candelaria M.D.
--- NOTE | ~2016-07-29 | DS ---
Discharge Summary [place] [id number] [facility] [place]. [address] NAME: GRICELDA GIPSON : [birth year] STATUS : ADM IN PAT#: [id number] AGE: 89 ADM/REG DATE : 07/29/16 MR#: [id number] REPORT SERV DATE: 08/02/16 DICTATED BY: KYLIE VEGA. DATE: 08/02/16 REPORT STATUS : Draft TRANSCRIBED BY: CAIO DATE: 08/02/16 ADMISSION DATE: 07/29/2016 DISCHARGE DATE: CONSULTING PHYSICIAN: Dr. Crowley for ID, Dr. Barker for Surgery, and [facility]. FINAL DIAGNOSES: 1. Chronic decubitus ulcer with osteomyelitis. 2. 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 3. Neurogenic bladder with chronic Preciado. 4. Coronary artery disease with stent and chronic elevated troponins. 5. Hypertension. 6. Chronic kidney disease 3. 7. Dysphagia. 8. Benign prostatic hyperplasia and prostate cancer. 9. Depression and anxiety. 10.Chronic anemia. DIAGNOSTIC EXAMS: Chest x-ray showing mild bibasilar atelectasis with mild elevation of the right hemidiaphragm. Findings similar to the prior exam. Left upper extremity PICC line in satisfactory position. Repeat chest x-ray, low lung volumes. Mild bibasilar atelectasis, just similar to the previous study. HOSPITAL COURSE: Please refer to the H and P done by Dr. Deluca dated on 07/29/2016. Briefly, this is an 89-year-old male with a history of stage IV decubitus ulcer with osteomyelitis, paraplegia secondary to spinal stenosis, neurogenic bladder with chronic Preciado, CAD, CKD 3, was just recently treated with prolonged antibiotics for the osteomyelitis. The patient was sent to the assisted facility and brought back here for confusion, decreased appetite, increasing debility. The patient was then admitted, and we got surgical and ID consult and they gave a poor prognosis on the patient. As with the patient being bed-bound status, it is close to impossible to heal that sacral decubitus ulcer. We got Palliative Care involved and they talked with the family and they agreed for hospice. [facility] is willing to accept the patient. The patient will now be discharged to SNF with hospice and further management care of them. DICTATED BY: Jazmin Baltazar/CAIO Kylie Vega M.D. / [id number] Discharge Summary [place] [address] [place]. [address] NAME: GRICELDA GIPSON : [birth year] STATUS : ADM IN PAT#: [id number] AGE: 89 ADM/REG DATE : 07/29/16 MR#: [id number] REPORT SERV DATE: 08/02/16 DICTATED BY: KYLIE VEGA. DATE: 08/02/16 REPORT STATUS : Draft TRANSCRIBED BY: CAIO DATE: 08/02/16 CC: Jazmin Baltazar M.D.
[2016-07-29 14:33] LABS: BASOPHILS 0 %; EOSINOPHILS 0.1 %; EOSINOPHILS ABSOLUTE 0.01 10/3/uL (0.0-0.53); ER CBC TAT 0 Hrs 03 Mins; HEMOGLOBIN 8.1 g/dL (13.6-17.8); IMMATURE GRANULOCYTES 0.8 %; IMMATURE GRANULOCYTES ABSOLUTE 0.09 10/3/uL (0.0-0.11); LYMPHOCYTES 12.7 %; LYMPHOCYTES ABSOLUTE 1.36 10/3/uL (0.67-4.30); MEAN CORPUS HGB CONC 32.4 g/dL (32.0-36.0); MEAN CORPUSCULAR HEMOGLOB 28.5 pg (26.0-34.0); MEAN PLATELET VOLUME 10.1 fL (9.2-13.0); MONOCYTES ABSOLUTE 0.85 10/3/uL (0.21-1.20); NEUTROPHILS 78.4 %; NEUTROPHILS ABSOLUTE 8.37 10/3/uL (2.02-8.40); PLATELET COUNT 219 10/3/uL (150-400); RED CELL COUNT 2.84 10/6/uL (4.7-6.1); WHITE BLOOD CELLS 10.7 10/3/uL (4.5-10.5)
[2016-07-29 14:35] LABS: MANUAL DIFF NO %
[2016-07-29 14:50] LABS: A/G RATIO 0.4 (0.7-1.9); ALBUMIN 1.6 G/DL (3.5-5.0); ALKALINE PHOSPHATASE 121 U/L (45-117); BUN (BLOOD UREA NITROGEN) 30 MG/DL (6-23); CALCIUM, SERUM 9.1 MG/DL (8.5-10.4); CHLORIDE, SERUM 113 MMOL/L (96-112); CO2 (CARBON DIOXIDE) 25 MMOL/L (24-34); CREATININE 1.42 MG/DL (0.70-1.30); GFR AFRICAN AMERICAN 51 ML/MIN (>=60); GFR NON AFRICAN AMERICAN 44 ML/MIN (>=60); GLOBULIN 4.5 G/DL (2.5-4.1); POTASSIUM, SERUM 3.5 MMOL/L (3.5-5.3); SGOT(AST) 13 U/L (5-40); SGPT(ALT) 9 U/L (5-65); SODIUM, SERUM 146 MMOL/L (135-148); TOTAL BILIRUBIN 0.3 MG/DL (0-1.2); TOTAL PROTEIN 6.1 G/DL (6.0-8.5)
[2016-07-29 14:51] LABS: GLUCOSE, SERUM 92 MG/DL (60-99)
[2016-07-29 14:57] LABS: INTERNATIONAL NORMAL RATI 1.4 UNITS (-); PARTIAL THROMBO TIME 39.4 SEC (22.5-37.2); PROTIME (NOT ORD) 16.6 SEC (12.0-14.5)
[2016-07-29 16:37] LABS: ASCORBIC ACID (UR NOT ORDER) NEG (NEG); BILIRUBIN, URINE NEGATIVE (NEG); ER URINALYSIS TAT 0 Hrs 09 Mins; KETONE, URINE NEGATIVE (NEG); LEUKOCYTE ESTERASE(NOT OR LARGE (NEG); NITRITE (URINE) NEG (NEG)
[2016-07-29 16:38] LABS: WBC (NOT ORDERED) (RFLEX) > 182 (0-5)
[2016-07-29] MEDS ORDERED: PRILO PO (16:43)
[2016-07-29] MEDS ORDERED: MELA3 PO (16:50)
[2016-07-29] MEDS ORDERED: VANCOMYCIN 750 MG IV (16:54)
[2016-07-29] MEDS ORDERED: MEGA625UDL PO (16:58)
[2016-07-29] MEDS ORDERED: IVFLUCO200 IV (17:00)
[2016-07-29] MEDS ORDERED: LEVAQUIN750 MG PO (17:01)
[2016-07-29] MEDS ORDERED: DUONEB INH (17:01)
[2016-07-29 23:06] LABS: C-REACTIVE PROTEIN 95.2 MG/L (<8.0); FOLATE 6.4 NG/ML (>5.2); FREE T4 1.48 NG/DL (0.76-1.46); PHOSPHORUS, SERUM 3.7 MG/DL (2.5-4.5); PREALBUMIN 9.7 MG/DL (17.0-43.0); TROPONIN I 0.06 NG/ML (<0.05); ULTRASENSITIVE TSH 2.42 MCIU/ML (0.358-3.740)
[2016-07-29 23:12] LABS: PROCALCITONIN 0.18 ng/mL (<0.5)
[2016-07-30 06:36] LABS: BASOPHILS 0.1 %; BASOPHILS ABSOLUTE 0.01 10/3/uL (0.0-0.16); EOSINOPHILS 0.3 %; EOSINOPHILS ABSOLUTE 0.03 10/3/uL (0.0-0.53); HEMATOCRIT 24.8 % (40.0-51.0); IMMATURE GRANULOCYTES 0.6 %; IMMATURE GRANULOCYTES ABSOLUTE 0.06 10/3/uL (0.0-0.11); LYMPHOCYTES 13.8 %; LYMPHOCYTES ABSOLUTE 1.34 10/3/uL (0.67-4.30); MANUAL DIFF NO %; MEAN CORPUS HGB CONC 32.3 g/dL (32.0-36.0); MEAN CORPUSCULAR HEMOGLOB 28.6 pg (26.0-34.0); MEAN CORPUSCULAR VOLUME 88.6 fL (80-100); MEAN PLATELET VOLUME 10.7 fL (9.2-13.0); MONOCYTES 8.7 %; MONOCYTES ABSOLUTE 0.85 10/3/uL (0.21-1.20); NEUTROPHILS 76.5 %; NEUTROPHILS ABSOLUTE 7.45 10/3/uL (2.02-8.40); PLATELET COUNT 217 10/3/uL (150-400); RBC DISTRIBUTION WIDTH 16.2 % (12.0-16.0); WHITE BLOOD CELLS 9.7 10/3/uL (4.5-10.5)
[2016-07-30 06:51] LABS: A/G RATIO 0.5 (0.7-1.9); ALBUMIN 1.7 G/DL (3.5-5.0); BUN (BLOOD UREA NITROGEN) 28 MG/DL (6-23); CALCIUM, SERUM 8.4 MG/DL (8.5-10.4); CHLORIDE, SERUM 116 MMOL/L (96-112); CO2 (CARBON DIOXIDE) 24 MMOL/L (24-34); CREATININE 1.23 MG/DL (0.70-1.30); GFR AFRICAN AMERICAN 60 ML/MIN (>=60); GFR NON AFRICAN AMERICAN 52 ML/MIN (>=60); GLOBULIN 3.6 G/DL (2.5-4.1); GLUCOSE, SERUM 86 MG/DL (60-99); POTASSIUM, SERUM 3.6 MMOL/L (3.5-5.3); SGOT(AST) 12 U/L (5-40); SGPT(ALT) 7 U/L (5-65); SODIUM, SERUM 148 MMOL/L (135-148); TOTAL BILIRUBIN 0.7 MG/DL (0-1.2); TOTAL PROTEIN 5.3 G/DL (6.0-8.5)
[2016-07-30 06:52] LABS: ALKALINE PHOSPHATASE 98 U/L (45-117)
[2016-07-31 05:02] LABS: CALCIUM, SERUM 8.6 MG/DL (8.5-10.4); CHLORIDE, SERUM 119 MMOL/L (96-112); CO2 (CARBON DIOXIDE) 21 MMOL/L (24-34); CREATININE 1.06 MG/DL (0.70-1.30); GFR AFRICAN AMERICAN 72 ML/MIN (>=60); GFR NON AFRICAN AMERICAN 62 ML/MIN (>=60); SODIUM, SERUM 148 MMOL/L (135-148)
[2016-07-31 05:08] LABS: BUN (BLOOD UREA NITROGEN) 23 MG/DL (6-23); GLUCOSE, SERUM 64 MG/DL (60-99); POTASSIUM, SERUM 4.8 MMOL/L (3.5-5.3)
== END 2016-08-02 15:48 | disposition hospice, inpatient (51) | DRG 539 ==
LOC: ER 15:25 → 7NO 19:09
PROVIDERS: Emergency Medicine; Hospitalist; Internal Medicine
DX: M86.68 Other chronic osteomyelitis, other site (principal); G93.40 Encephalopathy, unspecified; E43 Unspecified severe protein-calorie malnutrition; N17.9 Acute kidney failure, unspecified; L89.154 Pressure ulcer of sacral region, stage 4; E11.22 Type 2 diabetes mellitus with diabetic chronic kidney disease; G82.20 Paraplegia, unspecified; T83.511A Infection and inflammatory reaction due to indwelling urethral catheter, initial encounter; N18.3 Chronic kidney disease, stage 3 (moderate); Z79.4 Long term (current) use of insulin; Z66 Do not resuscitate; Z87.440 Personal history of urinary (tract) infections; Z74.01 Bed confinement status; I12.9 Hypertensive chronic kidney disease with stage 1 through stage 4 chronic kidney disease, or unspecified chronic kidney disease; Z95.5 Presence of coronary angioplasty implant and graft; Z68.25 Body mass index [BMI] 25.0-25.9, adult; N31.9 Neuromuscular dysfunction of bladder, unspecified; F32.9 Major depressive disorder, single episode, unspecified; F41.9 Anxiety disorder, unspecified; Z51.5 Encounter for palliative care
CPT/HCPCS: 36415; 71010; 80048; 80053; 81001; 82140; 82150; 82570; 82607; 82728; 82746; 82962; 83540; 83550; 83605; 83615; 83690; 83735; 83935; 84100; 84134; 84145; 84300; 84439; 84443; 84484; 85025; 85610; 85652; 85730; 86140; 86850; 86900; 86901; 86920; 87040; 87077; 87086; 87186; 92610-GN; 93005; 96374; 99285; A9270-GY; G8996-CK-GN; G8997-CK-GN; G8998-CK-GN; J1170; J1450; J1940; J3370; J3475; P9016; P9047